=== PATIENT | male | born 1955 | race Two or more races ===

== ENCOUNTER 2017-03-19 20:57 | Inpatient (IN) | payer SELFPAY ==
[~2017-03-19] VITALS: Ht 160 cm; Wt 95.4 kg
[~2017-03-19 20:57] MED LIST: PROAIR HFA8.5 GM INH
[2017-03-19] MEDS ORDERED: NITROGLYCERIN SUBLINGUAL 0.4 MG BOTTLE OF 25. SL ONE (21:07)
[2017-03-19 21:18] LABS: BASO % 1 % (0-3); EOS % 14 % (0-3); LYMPH # 2.3 x10^3/uL (1.0-4.8); LYMPH % 31 % (24-48); MEAN CORPUSCULAR HEMOGLOBIN 33 pg (25-35); MEAN CORPUSCULAR HGB CONC 34 g/dL (31-37); MEAN CORPUSCULAR VOLUME 97 fL (79-100); MONO % 9 % (0-9); NEUT % 46 % (31-73); PLATELET COUNT 232 x10^3/uL (140-400); RED BLOOD COUNT 5.15 x10^6/uL (4.30-5.70); RED CELL DISTRIBUTION WIDTH 13.4 % (11.5-14.5); WHITE BLOOD COUNT 7.5 x10^3/uL (4.0-11.0)
[2017-03-19 21:22] LABS: CALCIUM 8.5 mg/dL (8.5-10.1); CREATININE 0.8 mg/dL (0.7-1.3); GFR 98.3; POTASSIUM 4.3 mmol/L (3.5-5.1)
--- NOTE | 2017-03-19 21:28 | PHYS DOC ---
Past Medical History Past Medical History: Asthma, Hypertension Past Surgical History: No Surgical History Alcohol Use: Heavy Drug Use: None Adult General Chief Complaint Chief Complaint: CHEST PAIN HPI HPI 62-year-old male who has known history of hypertension and COPD. He presents with 2 hours of substernal chest pain that he noted while he was in the shower today. Upon arrival, patient had a O2 saturation of 92% and was placed on supplemental oxygen and given a full 325 mg aspirin as well as 100 g of fentanyl with some improvement of his symptoms. Patient arrives early hypertensive but in no acute distress he currently rates his pain an 8 out of 10 localized to the substernal area of his chest. He does not claim any history of cardiac disease. He denies any nausea or vomiting. Patient does use an inhaler at home for his history of COPD. Review of Systems Review of Systems Constitutional: Denies fever or chills [] Eyes: Denies change in visual acuity, redness, or eye pain [] HENT: Denies nasal congestion or sore throat [] Respiratory: Denies cough or shortness of breath [] Cardiovascular: No additional information not addressed in HPI [] GI: Denies abdominal pain, nausea, vomiting, bloody stools or diarrhea [] : Denies dysuria or hematuria [] Musculoskeletal: Denies back pain or joint pain [] Integument: Denies rash or skin lesions [] Neurologic: Denies headache, focal weakness or sensory changes [] Endocrine: Denies polyuria or polydipsia [] Current Medications Current Medications Current Medications Medications (Trade) Dose Ordered Sig/Sadi Start Time Stop Time Status Last Admin Dose Admin Albuterol/ Ipratropium (Duoneb) 3 ml RTQID 03/20/17 08:00 03/21/17 07:59 Morphine Sulfate 4 mg PRN Q2HR PRN 03/19/17 22:00 03/20/17 21:59 Nitroglycerin (Nitrostat) 0.4 mg STK-MED ONCE 03/19/17 21:07 03/19/17 21:08 DC Ondansetron HCl (Zofran) 4 mg PRN Q8HRS PRN 03/19/17 22:00 03/20/17 21:59 Allergies Allergies Allergies Coded Allergies Type Severity Reaction Last Updated Verified No Known Drug Allergies 10/01/16 No Physical Exam Physical Exam Constitutional: Well developed, well nourished, no acute distress, non-toxic appearance. [] HENT: Normocephalic, atraumatic, bilateral external ears normal, oropharynx moist, no oral exudates, nose normal. [] Eyes: PERRLA, EOMI, conjunctiva normal, no discharge. [] Neck: Normal range of motion, no tenderness, supple, no stridor. [] Cardiovascular:Heart rate regular rhythm, no murmur [] Lungs & Thorax: Bilateral breath sounds clear to auscultation [] Abdomen: Bowel sounds normal, soft, no tenderness, no masses, no pulsatile masses. [] Skin: Warm, dry, no erythema, no rash. [] Back: No tenderness, no CVA tenderness. [] Extremities: No tenderness, no cyanosis, no clubbing, ROM intact, no edema. [] Neurologic: Alert and oriented X 3, normal motor function, normal sensory function, no focal deficits noted. [] Psychologic: Affect normal, judgement normal, mood normal. [] Current Patient Data Vital Signs Vital Signs Date Time Temp Pulse Resp B/P (MAP) Pulse Ox O2 Delivery O2 Flow Rate FiO2 03/19/17 21:48 95 Nasal Cannula 2.0 03/19/17 21:11 98.1 83 20 182/113 (136) 98.1 Lab Values Laboratory Tests Test 03/19/17 21:05 White Blood Count 7.5 x10^3/uL (4.0-11.0) Red Blood Count 5.15 x10^6/uL (4.30-5.70) Hemoglobin 17.0 g/dL (13.0-17.5) Hematocrit 50.0 % (39.0-53.0) Mean Corpuscular Volume 97 fL (79-100) Mean Corpuscular Hemoglobin 33 pg (25-35) Mean Corpuscular Hemoglobin Concent 34 g/dL (31-37) Red Cell Distribution Width 13.4 % (11.5-14.5) Platelet Count 232 x10^3/uL (140-400) Neutrophils (%) (Auto) 46 % (31-73) Lymphocytes (%) (Auto) 31 % (24-48) Monocytes (%) (Auto) 9 % (0-9) Eosinophils (%) (Auto) 14 % (0-3) H Basophils (%) (Auto) 1 % (0-3) Neutrophils # (Auto) 3.4 x10^3uL (1.8-7.7) Lymphocytes # (Auto) 2.3 x10^3/uL (1.0-4.8) Monocytes # (Auto) 0.7 x10^3/uL (0.0-1.1) Eosinophils # (Auto) 1.0 x10^3/uL (0.0-0.7) H Basophils # (Auto) 0.0 x10^3/uL (0.0-0.2) Sodium Level 140 mmol/L (136-145) Potassium Level 4.3 mmol/L (3.5-5.1) Chloride Level 105 mmol/L (98-107) Carbon Dioxide Level 24 mmol/L (21-32) Anion Gap 11 (6-14) Blood Urea Nitrogen 14 mg/dL (8-26) Creatinine 0.8 mg/dL (0.7-1.3) Estimated GFR (Cockcroft-Gault) 98.3 Glucose Level 147 mg/dL (70-99) H Calcium Level 8.5 mg/dL (8.5-10.1) Troponin I Quantitative < 0.017 ng/mL (0.000-0.055) Laboratory Tests 03/19/17 21:05 Laboratory Tests 03/19/17 21:05 EKG EKG EKG as interpreted by me shows sinus rhythm with a rate of 85 bpm. There is a leftward axis. There is no acute injury pattern. Intervals are normal. Radiology/Procedures Radiology/Procedures Portable one view of the chest as interpreted by me shows no acute cardiopulmonary process. Course & Med Decision Making Course & Med Decision Making Pertinent Labs and Imaging studies reviewed. (See chart for details) This 62-year-old male with substernal chest pain will be admitted to the hospital for further evaluation treatment. A sublingual nitroglycerin be given for his blood pressure as well as chest pain. Troponin will be ordered. Chest x- ray pending at this time. A breathing treatment will be ordered as well. Upon my reassessment after sublingual nitroglycerin, the patient feels significantly improved with near resolution of his chest pain. Serial troponins have been ordered. I will discuss the case with the hospitalist, Dr. Quispe, and will place a cardiology consult as well. His EKG, chest x-ray, cardiac enzymes and the rest of his laboratory workup has been unremarkable. His blood pressure has improved significantly with sublingual nitroglycerin only. Dragon Disclaimer Dragon Disclaimer This electronic medical record was generated, in whole or in part, using a voice recognition dictation system. Departure Departure Impression: Primary Impression: Chest pain Additional Impression: COPD exacerbation Disposition: ADMITTED INPATIENT Admitting Physician: Chen Quispe Condition: STABLE Referrals: NO PCP (PCP) Problem Qualifiers JAYLON CRUZ DO March 19, 2017 21:28
[2017-03-19] MEDS ORDERED: IPRATRPIUM/ALBUTEROL 0.5/2.5MG 3 ML NEBU. NEB ONE (21:30)
[2017-03-19] MEDS ORDERED: ONDANSETRON PF 4 MG/2 ML VIAL. IV PRN (22:00)
[2017-03-19] MEDS ORDERED: MORPHINE SULFATE 4 MG/ML DISP.SYRIN. IV PRN (22:00)
[2017-03-19 23:48] VITALS: BP 155/97
[2017-03-20] VITALS (14 sets, daily range): BP systolic 119–176; BP diastolic 75–107
[2017-03-20] MEDS ORDERED: NITROGLYCERIN SUBLINGUAL 0.4 MG BOTTLE OF 25. SL PRN (00:30)
--- NOTE | 2017-03-20 03:20 | ACF ---
Admit Criteria Forms Admit Criteria Forms Admit Criteria Forms CARDIOLOGY GRG Clinical Indications for Admission to Inpatient Care ( Place 'X' for any and all applicable criteria): Hospital admission is needed for appropriate care of the patient because of ANY ONE of the following (1): [ ] I. Hemodynamic instability as indicated by ALL of the following (1)(2)(3) (4)(5) [ ]a) Vital signs or other findings not as expected for chronic patient condition or baseline [ ]b) Instability indicated by ANY ONE of the following: [ ]i) Hypotension [ ]ii) Symptomatic Tachycardia unresponsive to treatment ( e.g., analgesia, fluids, sedation as indicated) [ ]iii) Inadequate perfusion indicated by ANY ONE of the following: [ ] 1) Lactic acidosis (> 2 mmol/L) [ ] 2) New abnormal capillary refill (> 3 seconds) [ ] 3) Reduced urine output [ ] 4) New altered mental status [ ]iv) Orthostatic vital sign changes unresponsive to treatment (e.g., fluids) [ ]v) IV inotropic or vasopressor medication required to maintain adequate blood pressure or perfusion [ ] II. Severe heart failure as indicated by ANY ONE of the following(17)(18) [ ]a) Respiratory distress [ ]b) Hypotension [ ]c) Anasarca (refractory to outpatient therapy) [ ]d) Cardiac arrhythmias of immediate concern [ ]e) Myocardial ischemia [ ] III. Cardiac arrhythmias or findings of immediate concern indicated by ANY ONE of the following (19)(20): [ ] a) Heart rhythms that are inherently dangerous or unstable indicated by ANY ONE of the following (21)(22)(23): [ ] i) Resuscitated ventricular fibrillation or cardiac arrest [ ] ii) Ventricular escape rhythm [ ] iii) Sustained ventricular tachycardia (30 seconds or more of ventricular rhythm at greater than 100 beats per minute) [ ] iv) Nonsustained ventricular tachycardia and ANY ONE of the following: [ ] 1) Suspected cardiac ischemia as cause or consequence of ventricular tachycardia [ ] 2) In setting of acute myocarditis [ ] b) Unstable cardiac conduction defects indicated by ANY ONE of the following(23)(24)(25) [ ] i) Type II second-degree atrioventricular block [ ]ii) Third-degree atrioventricular block [ ]iii) New-onset left bundle branch block with suspected myocardial ischemia [ ]c) Any heart rhythm and ANY ONE of the following (21)(22)(26)(27) (28) [ ] i) Continuous long-term ECG monitoring needed (e.g., initiation of drug requiring monitoring for more than 24 hours) [ ] ii) Patient has automatic implanted cardioverter defibrillator that is repeatedly firing, malfunctioning, or in need of immediate adjustment of settings beyond the scope of ambulatory or observation care [ ]d) Heart rhythms of concern due to ANY ONE of the following: [ ] i) Hypotension [ ] ii) Respiratory distress [ ] iii) Association with other significant symptoms (e.g., bradycardia with syncope or ongoing dizziness, supraventricular tachycardia with chest pain (14)(15)(17) [ ] IV. Monitoring for cardiac contusion beyond the scope of observation care needed [A](30)(31)(32) [ ] V. Surgical or device complication (e.g., valve replacement complication , pacemaker dysfunction) (35)(41)(44)(45)(46) [ ] . Inpatient palliative care needed. [B](49) Also use Inpatient Palliative Care Criteria [ ] VII. Nonbacterial thrombotic (marantic) endocarditis (36)(43)(47)(48) [X] VIII. Cardiology condition, symptom, or finding for which emergency and observation care has failed or are not considered appropriate. [ ] IX. Acute valvular disease requiring inpatient as indicated by ANY ONE of the following (41) [ ]a) Acute valvular regurgitation (42) [ ]b) Noninfectious valvulitis (43) [ ]c) Obstructive valve thrombosis [ ]d) Paravalvular leak [ ]e) Other significant valvular disorder remaining after emergency or observation level of care (as appropriate) [ ]X. Pericardial disease requiring inpatient treatment as indicated by ANY ONE of the following (33)(34)(35)(36)(37) [ ]a) Suspected tamponade (38)(39)(40) [ ]b) Hemopericardium [ ]c) Other significant pericardial disorder remaining after emergency or observation level of care (as appropriate) [ ] XI. Cardiac ischemia beyond scope of emergency and observation care. [ ] XII. Hypertension requiring inpatient treatment as indicated by ANY ONE of the following (6)(7)(8) [ ]a) SBP greater than 220 mm Hg or DBP greater than 120 mmHg despite treatment [ ]b) SBP greater than 140 mm Hg or DBP greater than 100 mm Hg with evidence of acute end organ damage as indicated by ANY ONE of the following [ ] i) Encephalopathy [ ] ii) Acute renal failure as indicated by new onset of ANY ONE of the following (9)(10)(11)(12)(13) [ ]1) 3-fold rise in serum creatinine from baseline [ ]2) Serum creatinine greater than 4 mg/dL ( 354 micromoles/L) with acute rise greater than 0.5 mg/dL (44.2 micromoles/L) [ ]3) Reduction of more than 75% in estimated glomerular filtration rate from baseline [ ]4) Estimated glomerular filtration rate less than 35 mL/min/1.73m2 (0.59 mL/sec/1.73m2) in child up to 18 years of age [ ]5) Cessation of urine output indicated by ALL of the following [ ]A. Adequate volume status [ ]B. Inadequate urine output as indicated by ANY ONE of the following [ ]a. Urine output less than 0.3 mL/kg/hr for 24 hours [ ]b. Anuria (urine output less than 0.1 mL/kg/hr) for 12 hours [ ] iii) Aortic dissection [ ] iv) Myocardial Ischemia [ ] v) Left ventricular heart failure [ ]vi) Retinal Hemorrhage [ ]vii) Other significant finding [ ]c) Hypertension in child requiring inpatient treatment as indicated by ALL of the following(14)(15)(16) [ ] i) Outpatient treatment not effective, not available, or not appropriate [ ]ii) SBP or DBP greater than 95th percentile for age [ ]iii) Evidence of acute end organ damage as indicated by ANY ONE of the following [ ]1) Altered mental status [ ]2) Acute renal failure as indicated by new onset of ANY ONE of the following(9)(10)(11)(12)(13) [ ]A. 3-fold rise in serum creatinine from baseline [ ]B. Serum creatinine greater than 4 mg/dL (354 micromoles/L) with acute rise greater than 0.5 mg/dL (44.2 micromoles/L) [ ]C. Reduction of more than 75% in estimated glomerular filtration rate from baseline [ ]D. Estimated glomerular filtration rate less than 35 mL/min/1.73m2 (0.59 mL/sec/1.73m2) in child up to 18 years of age [ ]E. Cessation of urine output indicated by ALL of the following [ ]a. Adequate volume status [ ]b. Inadequate urine output as indicated by ANY ONE of the following [ ]i) Urine output less than 0.3 mL/kg/hr for 24 hours [ ]ii) Anuria ( urine output less than 0.1 mL/kg/hr) for 12 hours [ ]3) Severe headache [ ]4) Visual disturbance [ ]5) Retinal hemorrhage [ ]6) Other significant finding [ ]XIII. Complications of transplanted heart indicated by ANY ONE of the following(61): [ ]a) Acute graft rejection requiring inpatient management (eg, intravenous immunosuppression)(62)(63) [ ]b) Acute graft heart failure indicated by ANY ONE of the following(64): [ ]i) Hemodynamic instability [ ]ii) Cardiac arrhythmias of immediate concern [ ]iii) Pulmonary edema that is very severe (eg, mechanical ventilation needed, imminent or likely, need for 100% oxygen to keep oxygen saturation above 90%) [ ]iv) Pulmonary edema that is persistent as indicated by ALL of the following: [ ]1) New need for oxygen therapy to keep oxygen saturation above 90% (or increased FiO2 need from baseline) [ ]2) Has not improved sufficiently with emergency department or observation care IV diuretics or other heart failure treatments[E] [ ]v) Altered mental status that is severe or persistent [ ]vi) Increased creatinine (new on laboratory test) with reduction of more than 50% in estimated glomerular filtration rate from baseline [ ]vii) Progressively (ongoing) rising creatinine (known from past laboratory test) with reduction of more than 25% in estimated glomerular filtration rate from baseline [ ]viii) Acute renal failure [ ]ix) Acute peripheral ischemia (eg, examination shows pulseless, cool, mottled, or cyanotic extremity) [ ]x) Pulmonary artery catheter monitoring needed [ ]xi) Other sign or symptom of heart failure requiring inpatient treatment (ie, too severe or not responsive to outpatient and observation care treatment) [ ]c) Infection requiring inpatient management (eg, Hemodynamic instability, need for intravenous antimicrobial treatment)(66)(67)(68)(69)(70) [ ]d) Cardiac allograft vasculopathy requiring inpatient management ( eg evidence of cardiac ischemia)(71) [ ]e) Other complication of transplanted heart (eg, stroke, severe pulmonary hypertension, severe valvular dysfunction) requiring inpatient management(72) The original [employer] content created by [facility] [employer] has been revised. The portions of the content which have been revised are identified through the use of italic text or in bold, and [facility] has neither reviewed nor approved the modified material. All other unmodified content is copyright [employer] [facility]. Please see references footnoted in the original [facility] edition 2016 PATRICIO KELLER March 20, 2017 03:20
[2017-03-20 05:45] LABS: BASO % 1 % (0-3); EOS % 16 % (0-3); HEMATOCRIT 48.2 % (39.0-53.0); LYMPH # 2.1 x10^3/uL (1.0-4.8); LYMPH % 29 % (24-48); MEAN CORPUSCULAR HEMOGLOBIN 33 pg (25-35); MEAN CORPUSCULAR HGB CONC 33 g/dL (31-37); MEAN CORPUSCULAR VOLUME 98 fL (79-100); MONO % 10 % (0-9); NEUT % 45 % (31-73); PLATELET COUNT 239 x10^3/uL (140-400); RED CELL DISTRIBUTION WIDTH 13.6 % (11.5-14.5); WHITE BLOOD COUNT 7.2 x10^3/uL (4.0-11.0)
[2017-03-20 06:13] LABS: CALCIUM 8.5 mg/dL (8.5-10.1); CREATININE 0.8 mg/dL (0.7-1.3); GFR 98.3; POTASSIUM 4.2 mmol/L (3.5-5.1)
[2017-03-20 06:32] LABS: CHOLESTEROL/HDL RATIO 6.2
[2017-03-20] MEDS ORDERED: HEPARIN 25,000UTS/500ML PREMIX 500 ML IV PRN (07:15)
[2017-03-20] MEDS ORDERED: HEPARIN for IV BOLUS 10,000 UNIT/10 ML VIAL. IV ONE ×2 (07:15→15:00)
[2017-03-20] MEDS ORDERED: HEPARIN for IV BOLUS 10,000 UNIT/10 ML VIAL. IV PRN (07:15)
--- NOTE | 2017-03-20 07:45 | RAD ---
Portable chest, 03/19/2017: History: Chest pain, cough Comparison is made to a study from 10/01/2016. The heart size and pulmonary vascularity are normal. There is mild tortuosity of the thoracic aorta. No acute infiltrate is seen. There is no evidence of pleural fluid. Moderate spurring is present in the spine. IMPRESSION: No acute cardiopulmonary abnormality is detected.
--- NOTE | 2017-03-20 08:47 | EKG ---
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
--- NOTE | 2017-03-20 09:10 | PDOC2 ---
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 Reports of left chest pressure overnight lasting about 3 hours that was associated with SOA, nausea and diaphoresis. His discomfort did not get better till he got in the hospital and received medications. He does have HTN and his BP was labile coming in. He has stopped taking his BP meds about 2 months ago. He does not have any hx of CAD, VTE, and no recent fals or injury. Denies any frequent heartburn. In addition to his symptoms lately he has been a little more SOA with exertion His mainly sedentary and no forms of routine exercise. He also adds that at times he does when he sleeps he wakes at night gasping for air but better after he takes his inhalers. He does have COPD and still has albuterol inhaler for it. Denies any routine NSAID use. The staff tried to call [facility] [place] to confirm his past medications but apparently he was not noted to be in the system. He currently lives with his daughter in [facility]. PAST MEDICAL HISTORY Cardiovascular: HTN Pulmonary: COPD CENTRAL NERVOUS SYSTEM: Other (No pertinent history) GI: No pertinent hx Heme/Onc: No pertinent hx Hepatobiliary: No pertinent hx Psych: No pertinent hx Musculoskeletal: low back pain, Osteoarthritis Rheumatologic: No pertinent hx Infectious disease: No pertinent hx ENT: No pertinent hx Renal/: No pertinent hx Endocrine: No pertinent hx Dermatology: No pertinent hx PAST SURGICAL HISTORY Past Surgical History: Other (right hand repair) FAMILY HISTORY Family History noncontributory to CV SOCIAL HISTORY Smoke: No (quit 2 yrs ago. >30 pk yr) ALCOHOL: none Drugs: None Lives: with Family CURRENT MEDICATIONS CURRENT MEDICATIONS Current Medications Medications (Trade) Dose Ordered Sig/Sadi Route PRN Reason Start Time Stop Time Status Last Admin Dose Admin Albuterol/ Ipratropium (Duoneb) 3 ml 1X ONCE NEB 03/19/17 21:30 03/19/17 21:31 DC 03/19/17 21:47 Nitroglycerin (Nitrostat) 0.4 mg PRN Q5MIN PRN SL CHEST PAIN 03/20/17 00:30 03/19/17 21:08 Heparin Sodium (Porcine) (Heparin Sodium) 4,000 unit 1X ONCE IV 03/20/17 07:15 03/20/17 07:16 DC 03/20/17 07:29 Heparin Sodium/ Dextrose 500 ml @ 0 mls/hr CONT PRN IV SEE I/O RECORD 03/20/17 07:15 03/20/17 07:29 ALLERGIES ALLERGIES: Coded Allergies: No Known Drug Allergies (Unverified , 10/01/16) ROS Review of System 14 point ROS evaluated with pertinent positives noted per HPI PHYSICAL EXAM General: Alert, Oriented X3, Cooperative, No acute distress HEENT: Atraumatic, Mucous membr. moist/pink Lungs: Normal air movement, Other (upper wheeze) Heart: Regular rate (SR), Normal S1, Normal S2, Other (distant heart sounds) Abdomen: Soft, No tenderness Extremities: Other (obese) Skin: No breakdown, No significant lesion Neuro: Normal speech, Sensation intact Psych/Mental Status: Mental status NL, Mood NL MUSCULOSKELETAL: Osteoarthritic changes both hands VITALS VITALS Vital Signs Date Time Temp Pulse Resp B/P (MAP) Pulse Ox O2 Delivery O2 Flow Rate FiO2 03/20/17 07:00 97.4 77 20 170/107 (128) 93 Nasal Cannula 2.0 97.4 LABS Lab: Laboratory Tests Test 03/19/17 21:05 03/20/17 05:25 White Blood Count 7.5 x10^3/uL (4.0-11.0) 7.2 x10^3/uL (4.0-11.0) Red Blood Count 5.15 x10^6/uL (4.30-5.70) 4.90 x10^6/uL (4.30-5.70) Hemoglobin 17.0 g/dL (13.0-17.5) 16.0 g/dL (13.0-17.5) Hematocrit 50.0 % (39.0-53.0) 48.2 % (39.0-53.0) Mean Corpuscular Volume 97 fL (79-100) 98 fL (79-100) Mean Corpuscular Hemoglobin 33 pg (25-35) 33 pg (25-35) Mean Corpuscular Hemoglobin Concent 34 g/dL (31-37) 33 g/dL (31-37) Red Cell Distribution Width 13.4 % (11.5-14.5) 13.6 % (11.5-14.5) Platelet Count 232 x10^3/uL (140-400) 239 x10^3/uL (140-400) Neutrophils (%) (Auto) 46 % (31-73) 45 % (31-73) Lymphocytes (%) (Auto) 31 % (24-48) 29 % (24-48) Monocytes (%) (Auto) 9 % (0-9) 10 % (0-9) Eosinophils (%) (Auto) 14 % (0-3) 16 % (0-3) Basophils (%) (Auto) 1 % (0-3) 1 % (0-3) Neutrophils # (Auto) 3.4 x10^3uL (1.8-7.7) 3.2 x10^3uL (1.8-7.7) Lymphocytes # (Auto) 2.3 x10^3/uL (1.0-4.8) 2.1 x10^3/uL (1.0-4.8) Monocytes # (Auto) 0.7 x10^3/uL (0.0-1.1) 0.7 x10^3/uL (0.0-1.1) Eosinophils # (Auto) 1.0 x10^3/uL (0.0-0.7) 1.1 x10^3/uL (0.0-0.7) Basophils # (Auto) 0.0 x10^3/uL (0.0-0.2) 0.0 x10^3/uL (0.0-0.2) Sodium Level 140 mmol/L (136-145) 142 mmol/L (136-145) Potassium Level 4.3 mmol/L (3.5-5.1) 4.2 mmol/L (3.5-5.1) Chloride Level 105 mmol/L (98-107) 106 mmol/L (98-107) Carbon Dioxide Level 24 mmol/L (21-32) 27 mmol/L (21-32) Anion Gap 11 (6-14) 9 (6-14) Blood Urea Nitrogen 14 mg/dL (8-26) 13 mg/dL (8-26) Creatinine 0.8 mg/dL (0.7-1.3) 0.8 mg/dL (0.7-1.3) Estimated GFR (Cockcroft-Gault) 98.3 98.3 Glucose Level 147 mg/dL (70-99) 117 mg/dL (70-99) Calcium Level 8.5 mg/dL (8.5-10.1) 8.5 mg/dL (8.5-10.1) Troponin I Quantitative < 0.017 ng/mL (0.000-0.055) 0.967 ng/mL (0.000-0.055) Triglycerides Level 193 mg/dL (0-150) Cholesterol Level 173 mg/dL (0-200) LDL Cholesterol, Calculated 106 mg/dL (0-100) VLDL Cholesterol, Calculated 39 mg/dL (0-40) Non-HDL Cholesterol Calculated 145 mg/dL (0-129) HDL Cholesterol 28 mg/dL (40-60) Cholesterol/HDL Ratio 6.2 ASSESSMENT/PLAN ASSESSMENT/PLAN 1. NSTEMI: 0.967 on 2nd trop, EKG SR with possible anterolateral changes with now poor R wave progression on repeat EKG. Notable for typical features. 2. HTN: labile. Stopped taking meds about 2 months ago 3. HLP: new 4. COPD: per PCP. >30 pk yr quit 2 yrs ago 5. Obesity: BMI 37 6. Likely BHARTI: physical features with verbalized PND will need outpt workup. Recommendations 1. Heparin drip, ASA 2. TTE, CMP, Mg, TSH 3. [facility] today, risks and benefits explained and agreeable. 4. Will start on lisinopril, will incorporate HCTZ post [facility]. Hydralazine IV PRN Problems: PHYLLIS CH MD 03/21/17 2154: CARDIAC CONSULT ALLERGIES ALLERGIES: Coded Allergies: No Known Drug Allergies (Unverified , 10/01/16) ASSESSMENT/PLAN ASSESSMENT/PLAN Late entry for 03/20/2017 62 y.o male with nstemi, plan for [facility] Normal cardiac exam. Labs/meds reviewed. Problems: SARIAH DESAI TRUCK CLEANER March 20, 2017 09:10 PHYLLIS CH MD March 21, 2017 21:54
[2017-03-20] MEDS ORDERED: hydrALAZINE 20 MG/ML VIAL. IVP ONE (09:15)
[2017-03-20] MEDS ORDERED: hydrALAZINE 20 MG/ML VIAL. IVP PRN (09:15)
[2017-03-20] MEDS ORDERED: IV 1/2 NORMAL SALINE 1,000 ML IV ONE (09:15)
--- NOTE | 2017-03-20 09:17 | EKG ---
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
[2017-03-20 09:42] LABS: ALBUMIN 3.3 g/dL (3.4-5.0); DIRECT BILIRUBIN 0.2 mg/dL (0.0-0.2); MAGNESIUM 1.9 mg/dL (1.8-2.4); TOTAL BILIRUBIN 0.6 mg/dL (0.2-1.0); TOTAL PROTEIN 7.6 g/dL (6.4-8.2)
[2017-03-20] MEDS: IPRATRPIUM/ALBUTEROL 0.5/2.5MG 3 ML NEBU. NEB SCH ×4 (09:43→19:59)
--- NOTE | 2017-03-20 09:57 | PDOC1 ---
History and Physical Current Problem List Problem List Problems Medical Problems: (1) Chest pain Status: Acute (2) COPD exacerbation Status: Acute Current Medications Current Medications Current Medications Medications (Trade) Dose Ordered Sig/Sadi Start Time Stop Time Status Last Admin Dose Admin Albuterol/ Ipratropium (Duoneb) 3 ml RTQID 03/20/17 08:00 03/21/17 07:59 03/20/17 09:43 3 ML Atorvastatin Calcium (Lipitor) 40 mg QHS 03/20/17 21:00 Heparin Sodium (Porcine) (Heparin Sodium) 2,400 unit PRN Q6HRS PRN 03/20/17 07:15 Heparin Sodium/ Dextrose 500 ml @ 0 mls/hr CONT PRN 03/20/17 07:15 03/20/17 07:29 0 MLS/HR Hydralazine HCl (Apresoline) 10 mg 1X ONCE 03/20/17 09:15 03/20/17 09:16 DC 03/20/17 09:20 10 MG Morphine Sulfate 4 mg PRN Q2HR PRN 03/19/17 22:00 03/20/17 21:59 Nitroglycerin (Nitrostat) 0.4 mg PRN Q5MIN PRN 03/20/17 00:30 03/19/17 21:08 0.4 MG Ondansetron HCl (Zofran) 4 mg PRN Q8HRS PRN 03/19/17 22:00 03/20/17 21:59 Sodium Chloride 1,000 ml @ 75 mls/hr 1X ONCE 03/20/17 09:15 03/20/17 22:34 03/20/17 09:47 75 MLS/HR Allergies Allergies Allergies Coded Allergies Type Severity Reaction Last Updated Verified No Known Drug Allergies 10/01/16 No ROS Review of System CONSTITUTIONAL: No fever or chills EYES: No recent changes SKIN: No rash or itching CARDIOVASCULAR: chest pain, no syncope, palpitations, or edema RESPIRATORY: No SOB or cough GASTROINTESTINAL: No nausea, vomiting or abdominal pain NEUROLOGICAL: No headaches or weakness ENDOCRINE: No cold or heat intolerance GENITOURINARY: No urgency or frequency of urination MUSCULOSKELETAL: No back pain or joint pain LYMPHATICS: No enlarged lymph nodes PSYCHIATRIC: No anxiety or depression Physical Exam Physical Exam GEN.: No apparent distress. Alert and oriented. HEENT: Head is normocephalic, atraumatic NECK: Supple. no JVD LUNGS: Clear to auscultation. Normal airflow HEART: RRR, S1, S2 present. Peripheral pulses intact ABDOMEN: Soft, nontender. Positive bowel sounds. EXTREMITIES: Without any cyanosis. NEUROLOGIC: Normal speech, normal tone PSYCHIATRIC: Normal affect, normal mood. SKIN: No ulcerations Vitals Vitals Vital Signs Date Time Temp Pulse Resp B/P (MAP) Pulse Ox O2 Delivery O2 Flow Rate FiO2 03/20/17 09:20 77 170/107 03/20/17 07:50 Nasal Cannula 2.0 03/20/17 07:00 97.4 20 93 97.4 Labs Labs Laboratory Tests Test 03/19/17 21:05 03/20/17 05:25 White Blood Count 7.5 x10^3/uL (4.0-11.0) 7.2 x10^3/uL (4.0-11.0) Red Blood Count 5.15 x10^6/uL (4.30-5.70) 4.90 x10^6/uL (4.30-5.70) Hemoglobin 17.0 g/dL (13.0-17.5) 16.0 g/dL (13.0-17.5) Hematocrit 50.0 % (39.0-53.0) 48.2 % (39.0-53.0) Mean Corpuscular Volume 97 fL (79-100) 98 fL (79-100) Mean Corpuscular Hemoglobin 33 pg (25-35) 33 pg (25-35) Mean Corpuscular Hemoglobin Concent 34 g/dL (31-37) 33 g/dL (31-37) Red Cell Distribution Width 13.4 % (11.5-14.5) 13.6 % (11.5-14.5) Platelet Count 232 x10^3/uL (140-400) 239 x10^3/uL (140-400) Neutrophils (%) (Auto) 46 % (31-73) 45 % (31-73) Lymphocytes (%) (Auto) 31 % (24-48) 29 % (24-48) Monocytes (%) (Auto) 9 % (0-9) 10 % (0-9) Eosinophils (%) (Auto) 14 % (0-3) 16 % (0-3) Basophils (%) (Auto) 1 % (0-3) 1 % (0-3) Neutrophils # (Auto) 3.4 x10^3uL (1.8-7.7) 3.2 x10^3uL (1.8-7.7) Lymphocytes # (Auto) 2.3 x10^3/uL (1.0-4.8) 2.1 x10^3/uL (1.0-4.8) Monocytes # (Auto) 0.7 x10^3/uL (0.0-1.1) 0.7 x10^3/uL (0.0-1.1) Eosinophils # (Auto) 1.0 x10^3/uL (0.0-0.7) 1.1 x10^3/uL (0.0-0.7) Basophils # (Auto) 0.0 x10^3/uL (0.0-0.2) 0.0 x10^3/uL (0.0-0.2) Sodium Level 140 mmol/L (136-145) 142 mmol/L (136-145) Potassium Level 4.3 mmol/L (3.5-5.1) 4.2 mmol/L (3.5-5.1) Chloride Level 105 mmol/L (98-107) 106 mmol/L (98-107) Carbon Dioxide Level 24 mmol/L (21-32) 27 mmol/L (21-32) Anion Gap 11 (6-14) 9 (6-14) Blood Urea Nitrogen 14 mg/dL (8-26) 13 mg/dL (8-26) Creatinine 0.8 mg/dL (0.7-1.3) 0.8 mg/dL (0.7-1.3) Estimated GFR (Cockcroft-Gault) 98.3 98.3 Glucose Level 147 mg/dL (70-99) 117 mg/dL (70-99) Calcium Level 8.5 mg/dL (8.5-10.1) 8.5 mg/dL (8.5-10.1) Troponin I Quantitative < 0.017 ng/mL (0.000-0.055) 0.967 ng/mL (0.000-0.055) Magnesium Level 1.9 mg/dL (1.8-2.4) Total Bilirubin 0.6 mg/dL (0.2-1.0) Direct Bilirubin 0.2 mg/dL (0.0-0.2) Aspartate Amino Transf (AST/SGOT) 32 U/L (15-37) Alanine Aminotransferase (ALT/SGPT) 43 U/L (16-63) Alkaline Phosphatase 57 U/L (46-116) Total Protein 7.6 g/dL (6.4-8.2) Albumin 3.3 g/dL (3.4-5.0) Triglycerides Level 193 mg/dL (0-150) Cholesterol Level 173 mg/dL (0-200) LDL Cholesterol, Calculated 106 mg/dL (0-100) VLDL Cholesterol, Calculated 39 mg/dL (0-40) Non-HDL Cholesterol Calculated 145 mg/dL (0-129) HDL Cholesterol 28 mg/dL (40-60) Cholesterol/HDL Ratio 6.2 Thyroid Stimulating Hormone (TSH) 1.942 uIU/mL (0.358-3.74) Laboratory Tests Test 03/19/17 21:05 03/20/17 05:25 White Blood Count 7.5 x10^3/uL (4.0-11.0) 7.2 x10^3/uL (4.0-11.0) Red Blood Count 5.15 x10^6/uL (4.30-5.70) 4.90 x10^6/uL (4.30-5.70) Hemoglobin 17.0 g/dL (13.0-17.5) 16.0 g/dL (13.0-17.5) Hematocrit 50.0 % (39.0-53.0) 48.2 % (39.0-53.0) Mean Corpuscular Volume 97 fL (79-100) 98 fL (79-100) Mean Corpuscular Hemoglobin 33 pg (25-35) 33 pg (25-35) Mean Corpuscular Hemoglobin Concent 34 g/dL (31-37) 33 g/dL (31-37) Red Cell Distribution Width 13.4 % (11.5-14.5) 13.6 % (11.5-14.5) Platelet Count 232 x10^3/uL (140-400) 239 x10^3/uL (140-400) Neutrophils (%) (Auto) 46 % (31-73) 45 % (31-73) Lymphocytes (%) (Auto) 31 % (24-48) 29 % (24-48) Monocytes (%) (Auto) 9 % (0-9) 10 % (0-9) Eosinophils (%) (Auto) 14 % (0-3) 16 % (0-3) Basophils (%) (Auto) 1 % (0-3) 1 % (0-3) Neutrophils # (Auto) 3.4 x10^3uL (1.8-7.7) 3.2 x10^3uL (1.8-7.7) Lymphocytes # (Auto) 2.3 x10^3/uL (1.0-4.8) 2.1 x10^3/uL (1.0-4.8) Monocytes # (Auto) 0.7 x10^3/uL (0.0-1.1) 0.7 x10^3/uL (0.0-1.1) Eosinophils # (Auto) 1.0 x10^3/uL (0.0-0.7) 1.1 x10^3/uL (0.0-0.7) Basophils # (Auto) 0.0 x10^3/uL (0.0-0.2) 0.0 x10^3/uL (0.0-0.2) Sodium Level 140 mmol/L (136-145) 142 mmol/L (136-145) Potassium Level 4.3 mmol/L (3.5-5.1) 4.2 mmol/L (3.5-5.1) Chloride Level 105 mmol/L (98-107) 106 mmol/L (98-107) Carbon Dioxide Level 24 mmol/L (21-32) 27 mmol/L (21-32) Anion Gap 11 (6-14) 9 (6-14) Blood Urea Nitrogen 14 mg/dL (8-26) 13 mg/dL (8-26) Creatinine 0.8 mg/dL (0.7-1.3) 0.8 mg/dL (0.7-1.3) Estimated GFR (Cockcroft-Gault) 98.3 98.3 Glucose Level 147 mg/dL (70-99) 117 mg/dL (70-99) Calcium Level 8.5 mg/dL (8.5-10.1) 8.5 mg/dL (8.5-10.1) Troponin I Quantitative < 0.017 ng/mL (0.000-0.055) 0.967 ng/mL (0.000-0.055) Magnesium Level 1.9 mg/dL (1.8-2.4) Total Bilirubin 0.6 mg/dL (0.2-1.0) Direct Bilirubin 0.2 mg/dL (0.0-0.2) Aspartate Amino Transf (AST/SGOT) 32 U/L (15-37) Alanine Aminotransferase (ALT/SGPT) 43 U/L (16-63) Alkaline Phosphatase 57 U/L (46-116) Total Protein 7.6 g/dL (6.4-8.2) Albumin 3.3 g/dL (3.4-5.0) Triglycerides Level 193 mg/dL (0-150) Cholesterol Level 173 mg/dL (0-200) LDL Cholesterol, Calculated 106 mg/dL (0-100) VLDL Cholesterol, Calculated 39 mg/dL (0-40) Non-HDL Cholesterol Calculated 145 mg/dL (0-129) HDL Cholesterol 28 mg/dL (40-60) Cholesterol/HDL Ratio 6.2 Thyroid Stimulating Hormone (TSH) 1.942 uIU/mL (0.358-3.74) VTE Prophylaxis Ordered VTE Prophylaxis Devices: No VTE Pharmacological Prophylaxi: No KASEY RENAE MD March 20, 2017 09:57
[2017-03-20] MEDS ORDERED: LISINOPRIL 10 MG TABLET PO ONE (11:15)
[2017-03-20 11:22] LABS: % BASOS 1 % (0-3); % EOS 13 % (0-5); PLT ESTIMATE ADEQUATE (ADEQUATE)
[2017-03-20] MEDS: ASPIRIN ENTERIC COATED 81 MG TABLET.DR. PO SCH (12:20)
--- NOTE | 2017-03-20 12:54 | CARD ---
APPROVED REPORT EXAM: Two-dimensional and M-mode echocardiogram with Doppler and color Doppler. Other Information Quality : Average Rhythm : NSR INDICATION Non STEMI 2D DIMENSIONS RVDd3.0 (2.9-3.5cm)Left Atrium(2D)3.0 (1.6-4.0cm) IVSd1.3 (0.7-1.1cm)Aortic Root(2D)2.8 (2.0-3.7cm) LVDd4.4 (3.9-5.9cm)LVOT Diameter2.0 (1.8-2.4cm) PWd1.3 (0.7-1.1cm)LVDs2.8 (2.5-4.0cm) SV56.9 mlLVEF(%)54.1 (>50%) Aortic Valve AoV Peak Yusuf.144.2cm/sAoV VTI25.3cm AO Peak GR.8.3mmHgLVOT Peak Yusuf.113.4cm/s LVOT VTI 24.49cmAO Mean GR.5mmHg PIA (VMAX)2.95cd7RQU (VTI)2.98cm2 Mitral Valve MV E Opgtjxaa63.9cm/sMV DECEL [id number] MV A Rtepnsub38.4cm/sMV MQX83rs E/A Ratio0.8MV A Oormvsds343sj MVA (PHT)3.66cm2 TDI E/Lateral E'12.4E/Medial E'10.5 Pulmonary Valve PV Peak Ttpqsliv29.1cm/sPV Peak Grad.3mmHg RVOT VTI10.3cm Tricuspid Valve TR P. Yonppfqw482bm/sRAP VDMJKKGA9rzKh TR Peak Gr.23ycBzJIEH88kjNc Pulmonary Vein S1 Uqehjmhz28.9cm/sD2 Jlcyzziz70.9cm/s LEFT VENTRICLE The left ventricle is normal size. There is borderline concentric left ventricular hypertrophy. Left ventricle systolic function is normal. The Ejection Fraction is 50-55%. There is normal LV segmental wall motion. Tissue Doppler imaging reveals mild left ventricular diastolic dysfunction. There is no ventricular septal defect visualized. RIGHT VENTRICLE The right ventricle is normal size. The right ventricular systolic function is normal. ATRIA The left atrium size is normal. The right atrium size is normal. The interatrial septum is intact wit h no evidence for an atrial septal defect or patent foramen ovale as noted on 2-D or Doppler imaging. AORTIC VALVE Not well visualized. Grossly appears to be calcified and trileaflet. Doppler and Color Flow revealed no significant aortic regurgitation. There is no significant aortic valvular stenosis. MITRAL VALVE Mitral annular calcification is mild. The mitral valve leaflets are thickened. There is no mitral tawnya ve stenosis. Doppler and Color Flow revealed no mitral valve regurgitation noted. TRICUSPID VALVE The tricuspid valve is normal in structure and function. Doppler and Color Flow revealed trace tricus pid regurgitation. The PA pressure was estimated at 21 mmHg. There is no tricuspid valve stenosis. PULMONIC VALVE The pulmonic valve is not well visualized. Doppler and Color Flow revealed no pulmonic valvular regur gitation. There is no pulmonic valvular stenosis. GREAT VESSELS The aortic root is normal in size. Normal pulmonary venous flow (Doppler). The IVC is normal in size and collapses >50% with inspiration. PERICARDIAL EFFUSION There is no evidence of significant pericardial effusion. Critical Notification Critical Value: No <Conclusion> Left ventricle systolic function is normal. The Ejection Fraction is 50-55%. There is normal LV segmental wall motion.
[2017-03-20] MEDS ORDERED: IOHEXOL 300 MG/ML 100ML VIAL. ONE ×2 (13:20→14:46)
[2017-03-20] MEDS ORDERED: LIDOCAINE 2% 20 ML VIAL. ONE (13:54)
[2017-03-20] MEDS ORDERED: fentaNYL PF VIAL 100 MCG/2 ML VIAL ONE (14:27)
[2017-03-20] MEDS ORDERED: VERAPAMIL 5 MG/2 ML VIAL. ONE (14:27)
[2017-03-20] MEDS ORDERED: HEPARIN for IV BOLUS 10,000 UNIT/10 ML VIAL. ONE (14:27)
[2017-03-20] MEDS ORDERED: MIDAZOLAM HCL/PF 2 MG/2 ML VIAL. ONE (14:27)
[2017-03-20] MEDS ORDERED: NITROGLYCERIN 200 MCG/2 ML SYRINGE FOR CATH/VASC LAB. ONE (14:27)
[2017-03-20] MEDS ORDERED: TIROFIBAN 12.5MG -0.9% NS 250 ML IV ONE (14:40)
[2017-03-20] MEDS ORDERED: MIDAZOLAM HCL/PF 2 MG/2 ML VIAL. IV ONE (15:00)
[2017-03-20] MEDS ORDERED: LIDOCAINE 2% 20 ML VIAL. IJ ONE (15:00)
[2017-03-20] MEDS ORDERED: IOHEXOL 300 MG/ML 100ML VIAL. IART ONE (15:00)
[2017-03-20] MEDS ORDERED: NITROGLYCERIN 200 MCG/2 ML SYRINGE FOR CATH/VASC LAB. IART ONE (15:00)
[2017-03-20] MEDS ORDERED: TIROFIBAN 12.5MG -0.9% NS 250 ML IV PRN (15:00)
[2017-03-20] MEDS ORDERED: HEPARIN for IV BOLUS 10,000 UNIT/10 ML VIAL. IART ONE (15:00)
[2017-03-20] MEDS ORDERED: VERAPAMIL 5 MG/2 ML VIAL. IART ONE (15:00)
[2017-03-20] MEDS ORDERED: fentaNYL PF VIAL 100 MCG/2 ML VIAL IV ONE (15:00)
[2017-03-20] MEDS ORDERED: PRASUGREL 10 MG TABLET. ONE (15:08)
[2017-03-20] MEDS ORDERED: PRASUGREL 10 MG TABLET. PO ONE (15:15)
--- NOTE | 2017-03-20 18:37 | CARD ---
APPROVED REPORT Procedure(s) performed: Coronary angiography, [facility] PCI of the LAD HISTORY The patient is a 62 year-old male with a history of : hypertension, dyslipidemia. INDICATION The indication(s) include : non-STEMI Trop of 1.8. PROCEDURE NARRATIVE The patient was brought electively to the cardiac catheterization lab. A timeout was performed confi rming the patient's name, date of , procedure, and site of procedure. All necessary personnel w ere wearing the appropriate protective equipment and radiation monitor devices. After explaining the risks and benefits of the procedure and alternatives, informed consent was obtained. (See nursing no michelle for medications administered). The right wrist was sterilely prepped and draped in the usual fas hion. The right wrist was infiltrated with 1 mL of 2% lidocaine for subcutaneous anesthesia. A 6 Fr ench Terumo glide sheath was inserted into the right radial artery without difficulty. Right and lef t coronary angiography was performed using a 6Fr TIG 4.0 catheter. HEMODYNAMICS: LVEDP 18 mm Hg No gradient on LV to aortic pullback. CORONARY ANGIOGRAPHY: LM is a large caliber vessel with normal angiographic appearance. LAD is a large caliber with a mid 80% hazy lesion. The distal vessel has normal angiographic appearan ce. D1/D2 are moderate caliber vessels with normal angiographic appearance. Ramus is a moderate caliber vessel with normal angiographic apeparance. LCx is a moderate caliber non-dominant vessel with normal angiographic appearance. OM1 is a moderate caliber vessel with normal angiographic appearance. RCA is a large caliber dominant vessel with mid 40-50% stenosis. RPDA and RPL are moderate caliber vessels with normal angiographic appearance. INTERVENTIONAL TECHNIQUE: PCI OF THE LAD Based upon the present symptoms, elevated biomarkers and antibiotic findings and intervention was per formed on the left anterior descending artery. Through a 6 Polish EBU 3.5 guide catheter a pro-water wire was advanced to the distal LAD. Next the lesion was angioplastied with a 3.0 x 12 mm balloon and subsequently stented with a vision 3.5 x 23 mm bare-metal stent at 14 jose f. The proximal aspect of th e stent was then postdilated with a 3.5 x 12 mm noncompliant balloon. Post-PCI angiography revealed e xcellent stent expansion with LILI-3 flow and no evidence of guider wire-related complications. The p atient received 60 mg of Effient at case completion. Conclusion 1. Two-vessel coronary artery disease with culprit lesion in the mid LAD. 2. Successful bare-metal stenting of the mid LAD with a 3.5 x 23 mm vision bare metal stent postdilat ed proximally at high pressure. Recommendations ASA 81mg daily indefinitely Prasugrel 10mg daily for 30 days, then transition to Plavix 75mg daily indefinitely if tolerated. High dose statin therapy Cardiac rehab referral
[2017-03-20] MEDS ORDERED: ATORVASTATIN CALCIUM 40 MG TABLET. PO SCH (21:00)
--- NOTE | 2017-03-21 00:31 | HP ---
ADMIT DATE: 03/20/2017 CHIEF COMPLAINT: Chest pain. HISTORY OF PRESENT ILLNESS: A 62-year-old male patient with a prior history of hypertension, presented to the ER with complaints of chest pain, described it as a chest pressure, present 2-3 hours prior to arrival with some nausea and diaphoresis. Denies any other prior history of coronary artery disease or CABG. The patient received fentanyl and aspirin in the ER, symptoms improved; however, his initial troponin showed mild elevation and he was admitted to the hospital for NSTEMI. Cardiology has been consulted. PAST MEDICAL HISTORY: Hypertension, COPD, low back pain and osteoarthritis. PAST SURGICAL HISTORY: Right hand repair. SOCIAL HISTORY: Quit smoking, former smoker. No alcohol, no drug abuse. FAMILY HISTORY: Unknown to the patient. No significant coronary artery disease. ALLERGIES: NKDA. REVIEW OF SYSTEMS AND PHYSICAL EXAMINATION: Please see my electronic H and P. LABORATORY FINDINGS: CBC within normal limits. Chemistry within normal limits. First set of troponins, 0.017 ____ 0.967. Lipid panel, triglycerides 193, LDL 106, VLDL is 39, HDL is 28. EKG: Sinus rhythm with anterolateral changes with poor R-wave progression as per the ER report. I could not able to look at the EKG. ASSESSMENT: 1. Non-ST elevation myocardial infarction, present on admission. 2. Hypertension. 3. Hyperlipidemia. 4. Prior history of chronic obstructive pulmonary disease. 5. Obesity. PLAN: 1. The patient currently on heparin drip as per ACS protocol and echocardiogram has been ordered. on Telemetry. 2. Planning for a cardiac catheterization this evening. 3. Lipitor. 4. We will try to get hold of his past oral medications 5. Cardiology has been following the patient. 6. PRN hydralazine for HTN 7. see orders. KASEY RENAE MD DR: SATNAM/annette JOB#: [id number] / [id number] MACK
[2017-03-21 03:00] VITALS: BP 129/88
[2017-03-21] MEDS: IPRATRPIUM/ALBUTEROL 0.5/2.5MG 3 ML NEBU. NEB SCH (07:21)
[2017-03-21 07:39] VITALS: BP 164/106
[2017-03-21] MEDS ORDERED: LISINOPRIL 20 MG TABLET PO SCH (09:00)
[2017-03-21] MEDS ORDERED: METOPROLOL TART IMMED RELEASE 25 MG TABLET. PO SCH (09:00)
[2017-03-21] MEDS: ASPIRIN ENTERIC COATED 81 MG TABLET.DR. PO SCH (09:24)
[2017-03-21] MEDS ORDERED: ALBUTEROL SULFATE 2.5 MG/3 ML NEBU. NEB ONE (11:15)
--- NOTE | 2017-03-21 11:15 | PDOC ---
SARIAH DESAI DIE CAST TECHNICIAN 03/21/17 1115: CARDIO Progress Notes Date and Time Date of Service 03/21/2017 Time of Evaluation 1020 Subjective Subjective: No Chest Pain, No Palpitations, No Dizziness, Other (mild SOA with increaseing wheeze) Vitals Vitals Vital Signs Date Time Temp Pulse Resp B/P (MAP) Pulse Ox O2 Delivery O2 Flow Rate FiO2 03/21/17 09:25 86 164/106 03/21/17 07:39 98.0 20 92 Room Air 98.0 03/21/17 07:22 2.0 Weight Weight [ ] Input and Output Intake and Output Intake and Output 03/21/17 07:00 Intake Total 2120 ml Output Total 1175 ml Balance 945 ml Intake Oral 1120 ml IV Total 1000 ml Output Urine Total 1175 ml Laboratory Labs Laboratory Tests Test 03/20/17 12:50 03/20/17 14:37 Heparin Anti-Xa Act, Unfractionated 0.21 IU/mL (0.30-0.70) Troponin I Quantitative 1.856 ng/mL (0.000-0.055) Activated Clotting Time 208 sec (92-181) Physical Exam HEENT: Neck Supple W Full Motion Chest: Symmetric LUNGS: Other (diffuse wheeze) Heart: S1S2, RRR (SR/SB), murmurs (2/6 systolic murmur to LLS border) Abdomen: Soft N/T Extremities: No Edema, No Calf Tenderness Neurology: alert, oriented, follow commands Other Exams right wrist arteriotomy site intact, no swelling or erythema, neurovascular status intact Assessment Assessment 1. NSTEMI: S/P PCI/BMS to mid LAD 2. Asymptomatic bradyarrhythmia: lowest 40. Intermittent started at around 5 AM , between SB and Mobitz type 1. Presently HR 70-80s 2. HTN: labile 3. HLP: new 4. COPD: per PCP. >30 pk yr quit 2 yrs ago. Increased wheeze today 5. Obesity: BMI 37 6. Likely BHARTI: physical features with verbalized PND will need outpt workup. Recommendations 1. DAPT with 81 mg ECASA. Prasugrel for 30 days (samples provided) then transition to plavix 2. No BB due to gelacio. Continue lisinopril and will add HCTZ. Continue with lipitor 3. BMP, Mg, and PCXR today 4. Unable to afford cardiac rehab. Pt did file for medicare a month ago he said , SW consult 5. Pt will need COPD maintenance inhaler more that albuterol inhaler, will defer to PCP 6. Encouraged lifestyle modifications, significant discussion in regards to CAD and compliance to pt and also discussed with daughter (Aide) 7. Encouraged to follow up in office in 4-6 wks. Anticipate DC this afternoon. PHYLLIS CH MD 03/21/17 2156: CARDIO Progress Notes Plan Plan Pt. seen and examined. Agree with above [employer] SALESP[employer] note. No acute events overnight. R radial access site is c/d/i. Plan for DC on plavix and asa. bare metal stent. Will f/u in the office. SARIAH DESAI APRN March 21, 2017 11:15 PHYLLIS CH MD March 21, 2017 21:56
[2017-03-21 11:17] VITALS: BP 137/81
[2017-03-21 12:08] LABS: CALCIUM 8.5 mg/dL (8.5-10.1); CREATININE 0.9 mg/dL (0.7-1.3); GFR 85.8; MAGNESIUM 1.9 mg/dL (1.8-2.4); POTASSIUM 3.9 mmol/L (3.5-5.1)
[2017-03-21] MEDS ORDERED: PRASUGREL 10 MG TABLET. PO ONE (12:45)
[2017-03-21] MEDS ORDERED: methylPREDNISolone SOD SUCC PF 40 MG/ML VIAL. IV ONE (13:15)
--- NOTE | 2017-03-21 14:49 | RAD ---
Indication shortness of air. A single view of the chest was obtained and is compared to a study 2 days previously. Heart size and pulmonary vessels are unchanged. Slightly tortuous thoracic aorta is noted, similar. An acute parenchymal infiltrate in either lung or significant change compared to the previous plain film exam is not seen. IMPRESSION: No acute or focal process. No significant change
[2017-03-21] MEDS ORDERED: PROAIR HFA8.5 GM INH (15:23)
[2017-03-21] MEDS ORDERED: PRAS10TA9 PO (15:23)
[2017-03-21] MEDS ORDERED: HYDR12.53 PO (15:23)
[2017-03-21] MEDS ORDERED: ATOR40TA59 PO (15:23)
[2017-03-21] MEDS ORDERED: ASPI81TA9 PO (15:23)
[2017-03-21] MEDS ORDERED: LISI-334 PO (15:23)
[2017-03-22] MEDS ORDERED: PRASUGREL 10 MG TABLET. PO SCH (08:00)
[2017-03-22] MEDS ORDERED: hydroCHLOROthiazide 12.5 MG CAPSULE PO SCH (09:00)
== END 2017-03-21 17:30 | disposition home or self-care (01) | DRG 249 ==
LOC: ER 20:57 → 2 SOUTH 21:51
PROVIDERS: ADMIT Internal Medicine; ATTEND Internal Medicine
PROC: 4A023N7 Measurement of Cardiac Sampling and Pressure, Left Heart, Percutaneous Approach (ICD-10-PCS; principal; 2017-03-20)
PROC: 02703DZ Dilation of Coronary Artery, One Artery with Intraluminal Device, Percutaneous Approach (ICD-10-PCS; 2017-03-20)
PROC: B2111ZZ Fluoroscopy of Multiple Coronary Arteries using Low Osmolar Contrast (ICD-10-PCS; 2017-03-20)
DX: I21.4 Non-ST elevation (NSTEMI) myocardial infarction (principal); J44.1 Chronic obstructive pulmonary disease with (acute) exacerbation; E66.9 Obesity, unspecified; Z68.37 Body mass index [BMI] 37.0-37.9, adult; E78.5 Hyperlipidemia, unspecified; M19.90 Unspecified osteoarthritis, unspecified site; G47.33 Obstructive sleep apnea (adult) (pediatric); I10 Essential (primary) hypertension; M54.5 Low back pain; I25.2 Old myocardial infarction; Z98.61 Coronary angioplasty status; Z79.82 Long term (current) use of aspirin
CPT/HCPCS: 36415; 71010; 80048; 80061; 80076; 83735; 84443; 84484; 85007; 85027; 85347; 85520; 92928; 93005; 93306; 93458; 94250; 94640; 94760; C1725; C1769; C1876; C1887; C1892; J0360; J2250; J2920; J3010; J3490; J7620; Q9967; 99285-25; J3246

== ENCOUNTER → 2017-07-13 | Outpatient (CLI) | payer SELFPAY ==
[~2017-07-13] MED LIST changes: +ASPI-612 PO; +ATOR40TA59 PO; +HYDR12.53 PO; +LISI-334 PO; +PRAS10TA9 PO
[2017-07-13 11:47] LABS: ALBUMIN 3.5 g/dL (3.4-5.0); ALBUMIN/GLOBULIN RATIO 0.7 (1.0-1.7); CALCIUM 8.8 mg/dL (8.5-10.1); CHOLESTEROL/HDL RATIO 7.1; CREATININE 0.9 mg/dL (0.7-1.3); GFR 85.8; POTASSIUM 3.9 mmol/L (3.5-5.1); TOTAL BILIRUBIN 0.2 mg/dL (0.2-1.0); TOTAL PROTEIN 8.5 g/dL (6.4-8.2)
== END | disposition home or self-care (01) ==
LOC: LAB 11:08
PROVIDERS: ATTEND Nurse Practitioner
DX: I10 Essential (primary) hypertension (principal); E78.5 Hyperlipidemia, unspecified
CPT/HCPCS: 36415; 80053; 80061

== ENCOUNTER 2017-07-25 06:04 | Emergency (ER) | payer SELFPAY ==
[~2017-07-25] VITALS: Ht 160 cm; Wt 79.4 kg
[2017-07-25] MEDS ORDERED: IPRATRPIUM/ALBUTEROL 0.5/2.5MG 3 ML NEBU. NEB ONE (06:30)
[2017-07-25] MEDS ORDERED: ALBUTEROL SULFATE 2.5 MG/3 ML NEBU. NEB ONE (06:30)
--- NOTE | 2017-07-25 06:40 | PHYS DOC ---
Past Medical History Past Medical History: Asthma, Hypertension Past Surgical History: No Surgical History Alcohol Use: Heavy Drug Use: None Adult General Chief Complaint Chief Complaint: SHORTNESS OF BREATH HPI HPI Patient is a 62 year old male who presents with sob, cough, chest pain. Patient states he's had symptoms of 2 days including cough, sharp chest pain when he coughs and feels short of breath. Patient has a history of COPD and normally uses an inhaler but he has ran out. Patient had a heart catheter approximately one month ago with a stent placed. He states he has been taking his Plavix since then. He does not have a primary care physician and cannot recall the physician's should cared for him in the hospital. He denies any known fevers, no nausea or vomiting. The pain is not constant in his chest. Review of Systems Review of Systems Constitutional: Denies fever or chills [] Eyes: Denies change in visual acuity, redness, or eye pain [] HENT: Denies nasal congestion or sore throat [] Respiratory: Per history of present illness Cardiovascular: No additional information not addressed in HPI [] GI: Denies abdominal pain, nausea, vomiting, bloody stools or diarrhea [] : Denies dysuria or hematuria [] Musculoskeletal: Denies back pain or joint pain [] Integument: Denies rash or skin lesions [] Neurologic: Denies headache, focal weakness or sensory changes [] Current Medications Current Medications Current Medications Medications (Trade) Dose Ordered Sig/Sadi Start Time Stop Time Status Last Admin Dose Admin Albuterol Sulfate (Ventolin Neb Soln) 5 mg 1X ONCE 07/25/17 06:30 07/25/17 06:31 DC 07/25/17 06:29 5 MG Albuterol/ Ipratropium (Duoneb) 3 ml 1X ONCE 07/25/17 06:30 07/25/17 06:31 DC 07/25/17 06:24 3 ML Prednisone (Prednisone) 50 mg 1X ONCE 07/25/17 07:45 07/25/17 07:46 DC 07/25/17 07:54 50 MG Allergies Allergies Allergies Coded Allergies Type Severity Reaction Last Updated Verified No Known Drug Allergies 10/01/16 No Physical Exam Physical Exam Constitutional: Well developed, well nourished, ill appearing, talks in shortened sentences HENT: Normocephalic, atraumatic, bilateral external ears normal, oropharynx moist, no oral exudates, nose normal. [] Eyes: PERRLA, EOMI, conjunctiva normal, no discharge. [] Neck: Normal range of motion, no tenderness, supple, no stridor. [] Cardiovascular:Heart rate tachycardic with regular rhythm Lungs & Thorax: Poor air movement diffusely, prolonged expiratory phase Abdomen: Bowel sounds normal, soft, no tenderness, no masses, no pulsatile masses. [] Skin: Warm, dry, no erythema, no rash. [] Back: No tenderness, no CVA tenderness. [] Extremities: No tenderness, no cyanosis, no clubbing, ROM intact, no edema. Negative Homans bilaterally Neurologic: Alert and oriented X 3, normal motor function, normal sensory function, no focal deficits noted. [] Psychologic: Affect normal, judgement normal, mood normal. [] Current Patient Data Vital Signs Vital Signs Date Time Temp Pulse Resp B/P (MAP) Pulse Ox O2 Delivery O2 Flow Rate FiO2 07/25/17 07:52 96 23 125/73 (90) 96 Nasal Cannula 3.0 07/25/17 06:13 98.9 98.9 Lab Values Laboratory Tests Test 07/25/17 06:29 White Blood Count 10.3 x10^3/uL (4.0-11.0) Red Blood Count 5.41 x10^6/uL (4.30-5.70) Hemoglobin 17.6 g/dL (13.0-17.5) H Hematocrit 51.3 % (39.0-53.0) Mean Corpuscular Volume 95 fL (79-100) Mean Corpuscular Hemoglobin 32 pg (25-35) Mean Corpuscular Hemoglobin Concent 34 g/dL (31-37) Red Cell Distribution Width 13.7 % (11.5-14.5) Platelet Count 294 x10^3/uL (140-400) Neutrophils (%) (Auto) 57 % (31-73) Lymphocytes (%) (Auto) 19 % (24-48) L Monocytes (%) (Auto) 9 % (0-9) Eosinophils (%) (Auto) 15 % (0-3) H Basophils (%) (Auto) 1 % (0-3) Neutrophils # (Auto) 5.8 x10^3uL (1.8-7.7) Lymphocytes # (Auto) 1.9 x10^3/uL (1.0-4.8) Monocytes # (Auto) 0.9 x10^3/uL (0.0-1.1) Eosinophils # (Auto) 1.5 x10^3/uL (0.0-0.7) H Basophils # (Auto) 0.1 x10^3/uL (0.0-0.2) Platelet Estimate Pending Prothrombin Time 12.6 SEC (11.7-14.0) Prothrombin Time INR 1.0 (0.8-1.1) Sodium Level 136 mmol/L (136-145) Potassium Level 3.7 mmol/L (3.5-5.1) Chloride Level 99 mmol/L (98-107) Carbon Dioxide Level 26 mmol/L (21-32) Anion Gap 11 (6-14) Blood Urea Nitrogen 17 mg/dL (8-26) Creatinine 0.8 mg/dL (0.7-1.3) Estimated GFR (Cockcroft-Gault) 98.3 BUN/Creatinine Ratio 21 (6-20) H Glucose Level 144 mg/dL (70-99) H Lactic Acid Level 1.1 mmol/L (0.4-2.0) Calcium Level 8.8 mg/dL (8.5-10.1) Magnesium Level 1.8 mg/dL (1.8-2.4) Total Bilirubin 0.4 mg/dL (0.2-1.0) Aspartate Amino Transferase (AST) 36 U/L (15-37) Alanine Aminotransferase (ALT) 43 U/L (16-63) Alkaline Phosphatase 79 U/L (46-116) Troponin I Quantitative < 0.017 ng/mL (0.000-0.055) PU-[id number]-Type Natriuretic Peptide 68 pg/mL (0-124) Total Protein 8.4 g/dL (6.4-8.2) H Albumin 3.5 g/dL (3.4-5.0) Albumin/Globulin Ratio 0.7 (1.0-1.7) L Laboratory Tests 07/25/17 06:29 Laboratory Tests 07/25/17 06:29 EKG EKG 105 bpm, sinus tach, normal axis, normal intervals, no appreciable ST elevation or depression, nonischemic T waves , interpreted by me[] Radiology/Procedures Radiology/Procedures CXR: IMPRESSION: No radiographic evidence of an acute cardiopulmonary process. [] Course & Med Decision Making Course & Med Decision Making Pertinent Labs and Imaging studies reviewed. (See chart for details) She was given DuoNeb and albuterol breathing treatments. Patient reports feeling much better. He was taken off oxygen to maintain sats greater than 90%. Chest x-ray did not show any acute process, lab work unremarkable. Patient referred to the referral sheet to schedule follow-up. 4 more days of steroids, albuterol inhaler and nebs, machine RX given. Return precautions given. Dragon Disclaimer Dragon Disclaimer This electronic medical record was generated, in whole or in part, using a voice recognition dictation system. Departure Departure Disposition: HOME, SELF-CARE Condition: IMPROVED Referrals: NO PCP (PCP) Patient Instructions: Chronic Obstructive Pulmonary Disease Exacerbation Scripts Albuterol Sulfate (PROAIR HFA INHALER) 8.5 Gm Hfa.aer.ad 2 PUFF INH PRN Q6HRS Y for SHORTNESS OF BREATH, #1 INHALER 0 Refills Prov: FRANCA MARTI MD 07/25/17 Albuterol Sulfate (ALBUTEROL SULFATE NEB SOLN) 2.5 Mg/3 Ml Vial.neb 1 VIAL NEB PRN Q4HRS, #50 VIAL Prov: FRANCA MARTI MD 07/25/17 Prednisone (PREDNISONE) 50 Mg Tablet 1 TAB PO DAILY, #4 TAB starting tomorrow Prov: FRANCA MARTI MD 07/25/17 FRANCA MARTI MD Jul 25, 2017 06:40
[2017-07-25 06:44] LABS: BASO # 0.1 x10^3/uL (0.0-0.2); BASO % 1 % (0-3); EOS % 15 % (0-3); HEMATOCRIT 51.3 % (39.0-53.0); HEMOGLOBIN 17.6 g/dL (13.0-17.5); LYMPH # 1.9 x10^3/uL (1.0-4.8); LYMPH % 19 % (24-48); MEAN CORPUSCULAR HEMOGLOBIN 32 pg (25-35); MEAN CORPUSCULAR HGB CONC 34 g/dL (31-37); MEAN CORPUSCULAR VOLUME 95 fL (79-100); MONO % 9 % (0-9); NEUT % 57 % (31-73); PLATELET COUNT 294 x10^3/uL (140-400); RED BLOOD COUNT 5.41 x10^6/uL (4.30-5.70); RED CELL DISTRIBUTION WIDTH 13.7 % (11.5-14.5); WHITE BLOOD COUNT 10.3 x10^3/uL (4.0-11.0)
[2017-07-25 07:02] LABS: CALCIUM 8.8 mg/dL (8.5-10.1); CREATININE 0.8 mg/dL (0.7-1.3); GFR 98.3; POTASSIUM 3.7 mmol/L (3.5-5.1)
--- NOTE | 2017-07-25 07:06 | EKG ---
[facility] [address] [place] [address] Test Date: 2017-07-25 Test Time: 06:14:32 Pat Name: GRANT CHOI Department: Room: Gender: Cloth Tester Quality: : 1955 Requested By: FRANCA MARTI Order Number: [id number] Reading MD: Measurements Intervals [place] Rate: 105 P: 60 ND: 156 QRS: -11 QRSD: 86 T: 80 QT: 332 QTc: 443 Interpretive Statements SINUS TACHYCARDIA LEFT ATRIAL ABNORMALITY LEFTWARD AXIS T ABNORMALITY IN HIGH LATERAL LEADS RI6.01 Unconfirmed report No previous ECG available for comparison
[2017-07-25 07:08] LABS: ALBUMIN 3.5 g/dL (3.4-5.0); ALBUMIN/GLOBULIN RATIO 0.7 (1.0-1.7); MAGNESIUM 1.8 mg/dL (1.8-2.4); TOTAL BILIRUBIN 0.4 mg/dL (0.2-1.0); TOTAL PROTEIN 8.4 g/dL (6.4-8.2)
--- NOTE | 2017-07-25 07:10 | RAD ---
EXAM: CHEST 1 VIEW History: Cough, shortness of breath COMPARISON: 03/21/2017 TECHNIQUE: Single portable radiograph of the chest FINDINGS: The cardiac silhouette is unremarkable. The lungs are clear bilaterally. The costophrenic sulci are clear and well demarcated. IMPRESSION: No radiographic evidence of an acute cardiopulmonary process.
[2017-07-25 07:26] LABS: PROTHROMBIN TIME PATIENT 12.6 SEC (11.7-14.0)
[2017-07-25] MEDS ORDERED: predniSONE 20 MG TABLET PO ONE (07:45)
[2017-07-25 07:52] VITALS: BP 125/73
[2017-07-25] MEDS ORDERED: PROAIR HFA8.5 GM INH (08:12)
[2017-07-25] MEDS ORDERED: PRED50TA PO (08:12)
[2017-07-25] MEDS ORDERED: ALBU2.5V5 NEB (08:12)
[2017-07-25 10:57] LABS: % EOS 12 % (0-5); PLT ESTIMATE ADEQUATE (ADEQUATE)
== END 2017-07-25 08:20 | disposition home or self-care (01) ==
LOC: ER 06:04
DX: R06.02 Shortness of breath (principal); R05 Cough; R07.89 Other chest pain; I10 Essential (primary) hypertension; F10.20 Alcohol dependence, uncomplicated; J44.9 Chronic obstructive pulmonary disease, unspecified
CPT/HCPCS: 36415; 71010; 80053; 83605; 83735; 83880; 84484; 85007; 85025; 85610; 87040; 93005; 94640; 99285; J7512; J7613; J7620

== ENCOUNTER 2017-09-15 03:27 | Inpatient (IN) | payer MEDICARE ==
[2017-09-15] VITALS (7 sets, daily range): BP systolic 125–157; BP diastolic 67–96
[~2017-09-15] VITALS: Ht 162.6 cm; Wt 95.7 kg
[~2017-09-15 03:27] MED LIST changes: +ALBU2.5V5 NEB; +BENZ-8 PO; +DOXY100T PO; +METF500T PO; +PRED20TA PO; +PRED50TA PO
[2017-09-15 03:54] LABS: BASO % 1 % (0-3); EOS % 17 % (0-3); HEMATOCRIT 49.1 % (39.0-53.0); HEMOGLOBIN 16.7 g/dL (13.0-17.5); LYMPH # 1.6 x10^3/uL (1.0-4.8); LYMPH % 19 % (24-48); MEAN CORPUSCULAR HEMOGLOBIN 32 pg (25-35); MEAN CORPUSCULAR HGB CONC 34 g/dL (31-37); MEAN CORPUSCULAR VOLUME 94 fL (79-100); MONO % 8 % (0-9); NEUT % 56 % (31-73); PLATELET COUNT 244 x10^3/uL (140-400); RED BLOOD COUNT 5.22 x10^6/uL (4.30-5.70); RED CELL DISTRIBUTION WIDTH 13.4 % (11.5-14.5); WHITE BLOOD COUNT 8.7 x10^3/uL (4.0-11.0)
[2017-09-15] MEDS ORDERED: IPRATRPIUM/ALBUTEROL 0.5/2.5MG 3 ML NEBU. NEB ONE ×3 (04:00)
[2017-09-15] MEDS ORDERED: methylPREDNISolone SOD SUCC PF 125 MG/2 ML VIAL. IV ONE (04:00)
[2017-09-15 04:08] LABS: CREATININE 0.8 mg/dL (0.7-1.3); GFR 98.3; POTASSIUM 4.1 mmol/L (3.5-5.1)
[2017-09-15 04:13] LABS: ALBUMIN 3.6 g/dL (3.4-5.0); ALBUMIN/GLOBULIN RATIO 0.9 (1.0-1.7); TOTAL BILIRUBIN 0.6 mg/dL (0.2-1.0); TOTAL PROTEIN 7.5 g/dL (6.4-8.2)
[2017-09-15] MEDS ORDERED: ONDANSETRON PF 4 MG/2 ML VIAL. IV PRN (05:15)
--- NOTE | 2017-09-15 05:57 | PHYS DOC ---
Past Medical History Past Medical History: Asthma, COPD, High Cholesterol, Heart Disease, Hypertension Additional Past Medical Histor: LAD stent placed in february Past Surgical History: Angioplasty Alcohol Use: Occasionally Drug Use: None Adult General Chief Complaint Chief Complaint: SHORTNESS OF BREATH HPI HPI Patient is a 62 year old gentleman with a history significant for COPD who presents here today complaining of shortness of breath 1-2 days. Patient reports she was recently discharged from the hospital secondary to a COPD exacerbation. Patient reports she does not have any of his inhalers at home and thinks that might have exacerbated. Patient is complaining of a nonproductive cough. No fevers shakes chills nausea vomiting or diarrhea. Patient has any abdominal pain or chest pain. Patient denies any lower STEMI edema. Patient denies any history of a DVT or PE. Patient denies any orthopnea or PND. Physical Exam Review of systems: Constitutional: Denies fever or chills Eyes: Denies change in visual acuity, redness, or eye pain HENT: nasal congestion Respiratory: Denies cough or shortness of breath All other systems were reviewed and found to be within normal limits, except as documented in this note. Physical exam: Constitutional: Well developed, well nourished, no acute distress, non-toxic appearance. HENT: Normocephalic, atraumatic, bilateral external ears normal, oropharynx moist, no oral exudates, nose normal. Eyes: PERRLA, EOMI, conjunctiva normal, no discharge. Neck: Normal range of motion, no tenderness, supple, no stridor. Cardiovascular:Heart rate regular rhythm, Lungs & Thorax: Bilateral breath sounds clear to auscultation Abdomen: Bowel sounds normal, soft, no tenderness, no masses, no pulsatile masses. Skin: Warm, dry, no erythema, no rash. Back: No tenderness, no CVA tenderness. Extremities: No tenderness, no cyanosis, no clubbing, ROM intact, no edema. Neurologic: Alert and oriented X 3, normal motor function, normal sensory function, no focal deficits noted. Psychologic: Affect normal, judgement normal, mood normal. Chest x-ray reveals normal heart no infiltrates or effusions. Assessment and plan: This is a 62-year-old gentleman who presents here today complaining of shortness of breath. Patient does have a history significant for COPD. Patient has received Solu-Medrol, DuoNeb's, patient be admitted. Patient is still short of breath after his neb treatments does not feel comfortable going home. Patient be admitted secondary to his shortness of breath. Current Medications Current Medications Current Medications Medications (Trade) Dose Ordered Sig/Sadi Start Time Stop Time Status Last Admin Dose Admin Albuterol/ Ipratropium (Duoneb) 3 ml 1X ONCE 09/15/17 04:00 09/15/17 04:01 DC Methylprednisolone Sodium Succinate (SOLU-Medrol 125MG VIAL) 125 mg 1X ONCE 09/15/17 04:00 09/15/17 04:01 DC 09/15/17 04:15 125 MG Allergies Allergies Allergies Coded Allergies Type Severity Reaction Last Updated Verified No Known Drug Allergies 10/01/16 No Current Patient Data Vital Signs Vital Signs Date Time Temp Pulse Resp B/P (MAP) Pulse Ox O2 Delivery O2 Flow Rate FiO2 09/15/17 04:17 97 Room Air 09/15/17 03:42 98.3 96 26 162/102 (122) 98.3 Lab Values Laboratory Tests Test 09/15/17 03:38 White Blood Count 8.7 x10^3/uL (4.0-11.0) Red Blood Count 5.22 x10^6/uL (4.30-5.70) Hemoglobin 16.7 g/dL (13.0-17.5) Hematocrit 49.1 % (39.0-53.0) Mean Corpuscular Volume 94 fL (79-100) Mean Corpuscular Hemoglobin 32 pg (25-35) Mean Corpuscular Hemoglobin Concent 34 g/dL (31-37) Red Cell Distribution Width 13.4 % (11.5-14.5) Platelet Count 244 x10^3/uL (140-400) Neutrophils (%) (Auto) 56 % (31-73) Lymphocytes (%) (Auto) 19 % (24-48) L Monocytes (%) (Auto) 8 % (0-9) Eosinophils (%) (Auto) 17 % (0-3) H Basophils (%) (Auto) 1 % (0-3) Neutrophils # (Auto) 4.8 x10^3uL (1.8-7.7) Lymphocytes # (Auto) 1.6 x10^3/uL (1.0-4.8) Monocytes # (Auto) 0.7 x10^3/uL (0.0-1.1) Eosinophils # (Auto) 1.5 x10^3/uL (0.0-0.7) H Basophils # (Auto) 0.0 x10^3/uL (0.0-0.2) Platelet Estimate Pending Sodium Level 139 mmol/L (136-145) Potassium Level 4.1 mmol/L (3.5-5.1) Chloride Level 102 mmol/L (98-107) Carbon Dioxide Level 26 mmol/L (21-32) Anion Gap 11 (6-14) Blood Urea Nitrogen 15 mg/dL (8-26) Creatinine 0.8 mg/dL (0.7-1.3) Estimated GFR (Cockcroft-Gault) 98.3 BUN/Creatinine Ratio 19 (6-20) Glucose Level 162 mg/dL (70-99) H Calcium Level 9.0 mg/dL (8.5-10.1) Total Bilirubin 0.6 mg/dL (0.2-1.0) Aspartate Amino Transferase (AST) 31 U/L (15-37) Alanine Aminotransferase (ALT) 51 U/L (16-63) Alkaline Phosphatase 70 U/L (46-116) Troponin I Quantitative < 0.017 ng/mL (0.000-0.055) KM-Xtd-N-Type Natriuretic Peptide 57 pg/mL (0-124) Total Protein 7.5 g/dL (6.4-8.2) Albumin 3.6 g/dL (3.4-5.0) Albumin/Globulin Ratio 0.9 (1.0-1.7) L Laboratory Tests 09/15/17 03:38 Laboratory Tests 09/15/17 03:38 EKG EKG [] Radiology/Procedures Radiology/Procedures [] Course & Med Decision Making Course & Med Decision Making Pertinent Labs and Imaging studies reviewed. (See chart for details) [] Dragon Disclaimer Dragon Disclaimer This electronic medical record was generated, in whole or in part, using a voice recognition dictation system. Departure Departure Impression: Primary Impression: COPD exacerbation Disposition: 09 ADMITTED INPATIENT Admitting Physician: Chen Quispe Condition: IMPROVED Referrals: NO PCP (PCP) LEIA SNELL MD Sep 15, 2017 05:57
--- NOTE | 2017-09-15 06:38 | EKG ---
[facility] [address] [place] [address] Test Date: 2017-09-15 Test Time: 03:38:27 Pat Name: GRANT CRUZ Department: Room: [facility] Gender: M Personnel Consultant: : 1955 Requested By: LEIA SNELL Order Number: [id number] Reading MD: Champ Pickens MD Measurements Intervals [place] Rate: 89 P: 60 DE: 152 QRS: -3 QRSD: 96 T: 75 QT: 360 QTc: 439 Interpretive Statements SINUS RHYTHM Electronically Signed On 09-18-2017 14:11:58 ADULT LITERACY TEACHER by Champ Pickens MD
[2017-09-15] MEDS ORDERED: DEXTROSE 50% 25 GM / 50ML DISP.SYRIN. IV PRN (07:30)
--- NOTE | 2017-09-15 08:03 | RAD ---
AP chest radiograph 09/15/2017 Clinical indication: Chest pain Comparison: 09/01/2017 chest Findings: Cardiac and mistitled silhouettes are unremarkable. There is mild bibasilar atelectasis. No pleural effusion or pneumothorax. Impression: Mild bibasilar atelectasis without evidence of CHF or consolidating pneumonia.
[2017-09-15] MEDS: IPRATRPIUM/ALBUTEROL 0.5/2.5MG 3 ML NEBU. NEB SCH ×4 (08:09→20:29)
[2017-09-15 08:39] LABS: % EOS 17 % (0-5); PLT ESTIMATE ADEQUATE (ADEQUATE)
--- NOTE | 2017-09-15 10:35 | CONS ---
DATE OF CONSULTATION: 09/15/2017 ATTENDING PHYSICIAN: Chen Quispe MD. REASON FOR CONSULTATION: Dyspnea. HISTORY OF PRESENT ILLNESS: The patient is a 62-year-old male who is obese and has history of asthma. He was last hospitalized about a week ago. He came into the hospital with shortness of breath and coughing along with wheezing. The patient denies any fever. Denies any purulent sputum production. He is not on any steroid inhaler at home. No fever, no chills. No history of deep vein thrombosis or pulmonary embolism. Chest x-ray was reviewed and shows possible basilar atelectasis. Otherwise, no definite consolidation observed. Consultation requested for further evaluation and management. He is currently requiring oxygen initially with 3 liters, now at 2 liters and 97% saturation. He does not have home oxygen. PAST MEDICAL HISTORY: History of asthma, dyslipidemia, heart disease, and hypertension. History of LAD stent placed in February. PAST SURGICAL HISTORY: Angioplasty. ALLERGIES: None. MEDICATIONS: Reviewed as listed in the MRAD including DuoNeb. REVIEW OF SYSTEMS: Twelve-point system obtained. Pertinent positives discussed in my history of present illness, otherwise noncontributory. All systems that were negative were reviewed as well. SOCIAL HISTORY: Nonsmoker. FAMILY HISTORY: Noncontributory to lungs. PHYSICAL EXAMINATION: GENERAL: He is awake, following commands. VITAL SIGNS: Reviewed, pulse ox 97% on 2 liters, afebrile. HEENT: Sclerae nonicteric. NECK: Supple. LUNGS: With faint expiratory wheezes. CARDIOVASCULAR: Regular rate and rhythm. ABDOMEN: Soft, obese. EXTREMITIES: With no pitting edema. LABORATORY DATA: Reviewed. White cell count normal 8.7, hemoglobin is 16.7. BUN 15, creatinine 0.8. IMPRESSION: 1. Dyspnea with acute hypoxic respiratory failure secondary to acute asthma exacerbation. 2. No definite pneumonia seen. RECOMMENDATIONS: 1. I have discussed with the patient regarding the importance of using steroid inhaler as an outpatient to have a better control of his asthma. He understands that. We will write a prescription for Flovent at the time of discharge. 2. In the meantime, continue DuoNeb and add Pulmicort and add steroid IV. 3. Wean off oxygen. 4. We will need a 6-minute walk test at the time of discharge. CASPER GIVENS MD DR: Shama JOB#: [id number] / [id number]
[2017-09-15] MEDS: methylPREDNISolone SOD SUCC PF 40 MG/ML VIAL. IV SCH ×3 (11:25→20:21)
[2017-09-15] MEDS: BUDESONIDE 0.5 MG/2 ML NEBU. NEB SCH ×2 (11:28→20:29)
[2017-09-15] MEDS: metFORMIN 500 MG TABLET PO SCH (17:40)
[2017-09-15] MEDS: PRASUGREL 10 MG TABLET. PO SCH (17:40)
[2017-09-15] MEDS: ASPIRIN ENTERIC COATED 81 MG TABLET.DR. PO SCH (17:41)
[2017-09-15] MEDS: LISINOPRIL 20 MG TABLET PO SCH (17:41)
--- NOTE | 2017-09-15 18:05 | HP ---
ADMIT DATE: 09/15/2017 CHIEF COMPLAINT: Shortness of breath. HISTORY OF PRESENT ILLNESS: The patient is a 62-year-old gentleman with morbid obesity and asthma, well known to our service with frequent admissions for exacerbations. He presented to the Emergency Room last night with shortness of breath for about a day, coughing and wheezing. He denied any fevers, any significant sputum production. In the Emergency Room, chest x-ray revealed possible bibasilar atelectasis, no other consolidation; however, was observed. He was therefore admitted for asthma exacerbation. PAST MEDICAL HISTORY: Asthma, heart disease, hypertension, hyperlipidemia, status post stent placement to LAD in February 2017. FAMILY HISTORY: No respiratory issues. SOCIAL HISTORY: Never smoked, no toxic habits. REVIEW OF SYSTEMS: Positive as per HPI. Rest of organ system review is negative. PHYSICAL EXAMINATION: VITAL SIGNS: From today show a blood pressure of 146/93, heart rate of 90, respiratory rate at 22. He is afebrile. GENERAL: This is a morbidly obese gentleman, alert and oriented, in no acute distress, having mild difficulty speaking in full sentences due to shortness of breath. HEENT: Shows no scleral icterus. NECK: Thick, no palpable lymphadenopathy. LUNGS: Showing wheezes with poor air movement. HEART: Has regular rate and rhythm. ABDOMEN: Massively obese, positive bowel sounds. EXTREMITIES: Show no edema. SKIN: Warm, soft and dry. LABORATORY DATA: CBC with a WBC of 8.7, hemoglobin 16.7, platelets of 244. Chemistries with a BUN and creatinine of 15 and 0.8, normal electrolytes, normal LFTs. RADIOGRAPHIC FINDINGS: Chest x-ray shows mild bibasilar atelectasis without evidence of CHF or consolidated pneumonia. ASSESSMENT AND PLAN: The patient is a 62-year-old gentleman with asthma, once again presenting with asthma exacerbations. He has been started on steroids. He is getting inhalers and supplemental oxygen and symptoms are improving. Pulmonary consult has been requested as well. He does have significant heart disease, but is asymptomatic from this standpoint at this time. We will continue his secondary prevention medications. Blood pressure is somewhat elevated, possibly secondary to respiratory status. We will continue all his home medications. AZIZA CISNEROS MD DR: DIANA/annette JOB#: [id number] / [id number] MACK
[2017-09-15] MEDS: ATORVASTATIN CALCIUM 40 MG TABLET. PO SCH (20:21)
[2017-09-16 03:05] VITALS: BP 108/81
[2017-09-16 04:35] LABS: BASO % 0 % (0-3); EOS % 0 % (0-3); HEMATOCRIT 47.8 % (39.0-53.0); HEMOGLOBIN 16.1 g/dL (13.0-17.5); LYMPH # 1.1 x10^3/uL (1.0-4.8); LYMPH % 9 % (24-48); MEAN CORPUSCULAR HEMOGLOBIN 32 pg (25-35); MEAN CORPUSCULAR HGB CONC 34 g/dL (31-37); MEAN CORPUSCULAR VOLUME 94 fL (79-100); MONO % 3 % (0-9); NEUT % 88 % (31-73); PLATELET COUNT 240 x10^3/uL (140-400); RED BLOOD COUNT 5.07 x10^6/uL (4.30-5.70); RED CELL DISTRIBUTION WIDTH 13.5 % (11.5-14.5); WHITE BLOOD COUNT 12.4 x10^3/uL (4.0-11.0)
[2017-09-16 04:47] LABS: CALCIUM 9.1 mg/dL (8.5-10.1); POTASSIUM 3.9 mmol/L (3.5-5.1)
[2017-09-16] MEDS: methylPREDNISolone SOD SUCC PF 40 MG/ML VIAL. IV SCH ×3 (05:55→19:52)
[2017-09-16 06:23] LABS: PLT ESTIMATE ADEQUATE (ADEQUATE)
[2017-09-16] MEDS: IPRATRPIUM/ALBUTEROL 0.5/2.5MG 3 ML NEBU. NEB SCH ×3 (06:56→19:57)
[2017-09-16] MEDS: BUDESONIDE 0.5 MG/2 ML NEBU. NEB SCH ×2 (06:56→19:57)
[2017-09-16 07:21] VITALS: BP 151/70
[2017-09-16] MEDS: ASPIRIN ENTERIC COATED 81 MG TABLET.DR. PO SCH (08:19)
[2017-09-16] MEDS: LISINOPRIL 20 MG TABLET PO SCH (08:20)
[2017-09-16] MEDS: metFORMIN 500 MG TABLET PO SCH ×2 (08:20→17:07)
[2017-09-16] MEDS: PRASUGREL 10 MG TABLET. PO SCH (08:20)
--- NOTE | 2017-09-16 10:09 | PDOC ---
PROGRESS NOTES Chief Complaint Chief Complaint Acute hypoxic respir failure ASSESSMENT AND PLAN: 1. Asthma exacerbation: on steroids, nebs suppl O2. appreciate Dr Alaniz's input 2. CAD: no acute issues. cont 2ary prevention meds 3. HTN: better controlled; sl elevated this AM prior to med administration 4. DM: on metformin; poor control with steroids; cont ISS History of Present Illness History of Present Illness remains SOB, no cough Vitals Vitals Vital Signs Date Time Temp Pulse Resp B/P (MAP) Pulse Ox O2 Delivery O2 Flow Rate FiO2 09/16/17 08:22 Nasal Cannula 2.0 09/16/17 08:20 90 151/70 09/16/17 07:21 97.5 22 94 97.5 Physical Exam General: Alert, Oriented X3, Cooperative, No acute distress Heart: Regular rate Lungs: Clear, Other (decreased breath sounds) Abdomen: Normal bowel sounds, Soft, No tenderness Extremities: No edema Skin: No rashes Labs LABS Laboratory Tests Test 09/15/17 11:21 09/15/17 16:23 09/15/17 21:20 09/16/17 03:45 Glucose (Fingerstick) 304 mg/dL (70-99) 264 mg/dL (70-99) 258 mg/dL (70-99) White Blood Count 12.4 x10^3/uL (4.0-11.0) Red Blood Count 5.07 x10^6/uL (4.30-5.70) Hemoglobin 16.1 g/dL (13.0-17.5) Hematocrit 47.8 % (39.0-53.0) Mean Corpuscular Volume 94 fL (79-100) Mean Corpuscular Hemoglobin 32 pg (25-35) Mean Corpuscular Hemoglobin Concent 34 g/dL (31-37) Red Cell Distribution Width 13.5 % (11.5-14.5) Platelet Count 240 x10^3/uL (140-400) Neutrophils (%) (Auto) 88 % (31-73) Lymphocytes (%) (Auto) 9 % (24-48) Monocytes (%) (Auto) 3 % (0-9) Eosinophils (%) (Auto) 0 % (0-3) Basophils (%) (Auto) 0 % (0-3) Neutrophils # (Auto) 10.8 x10^3uL (1.8-7.7) Lymphocytes # (Auto) 1.1 x10^3/uL (1.0-4.8) Monocytes # (Auto) 0.4 x10^3/uL (0.0-1.1) Eosinophils # (Auto) 0.0 x10^3/uL (0.0-0.7) Basophils # (Auto) 0.0 x10^3/uL (0.0-0.2) Segmented Neutrophils % 86 % (35-66) Lymphocytes % 11 % (24-48) Monocytes % 3 % (0-10) Platelet Estimate Adequate (ADEQUATE) Sodium Level 136 mmol/L (136-145) Potassium Level 3.9 mmol/L (3.5-5.1) Chloride Level 99 mmol/L (98-107) Carbon Dioxide Level 25 mmol/L (21-32) Anion Gap 12 (6-14) Blood Urea Nitrogen 15 mg/dL (8-26) Creatinine 1.0 mg/dL (0.7-1.3) Estimated GFR (Cockcroft-Gault) 76.0 Glucose Level 223 mg/dL (70-99) Calcium Level 9.1 mg/dL (8.5-10.1) Test 09/16/17 08:18 Glucose (Fingerstick) 272 mg/dL (70-99) AZIZA CISNEROS MD Sep 16, 2017 10:09
--- NOTE | 2017-09-16 10:14 | PDOC ---
PULMONARY PROGRESS NOTES Subjective no soa Vitals Vital Signs Date Time Temp Pulse Resp B/P (MAP) Pulse Ox O2 Delivery O2 Flow Rate FiO2 09/16/17 08:22 Nasal Cannula 2.0 09/16/17 08:20 90 151/70 09/16/17 07:21 97.5 22 94 97.5 General: Alert, No acute distress Lungs: Other (clear) Cardiovascular: S1 Abdomen: Soft Neuro Exam: Alert Extremities: No Edema Skin: Warm Labs Laboratory Tests Test 09/15/17 03:38 09/15/17 07:25 09/15/17 11:21 09/15/17 16:23 White Blood Count 8.7 x10^3/uL (4.0-11.0) Red Blood Count 5.22 x10^6/uL (4.30-5.70) Hemoglobin 16.7 g/dL (13.0-17.5) Hematocrit 49.1 % (39.0-53.0) Mean Corpuscular Volume 94 fL (79-100) Mean Corpuscular Hemoglobin 32 pg (25-35) Mean Corpuscular Hemoglobin Concent 34 g/dL (31-37) Red Cell Distribution Width 13.4 % (11.5-14.5) Platelet Count 244 x10^3/uL (140-400) Neutrophils (%) (Auto) 56 % (31-73) Lymphocytes (%) (Auto) 19 % (24-48) Monocytes (%) (Auto) 8 % (0-9) Eosinophils (%) (Auto) 17 % (0-3) Basophils (%) (Auto) 1 % (0-3) Neutrophils # (Auto) 4.8 x10^3uL (1.8-7.7) Lymphocytes # (Auto) 1.6 x10^3/uL (1.0-4.8) Monocytes # (Auto) 0.7 x10^3/uL (0.0-1.1) Eosinophils # (Auto) 1.5 x10^3/uL (0.0-0.7) Basophils # (Auto) 0.0 x10^3/uL (0.0-0.2) Segmented Neutrophils % 66 % (35-66) Band Neutrophils % 3 % (0-9) Lymphocytes % 10 % (24-48) Monocytes % 4 % (0-10) Eosinophils % 17 % (0-5) Platelet Estimate Adequate (ADEQUATE) Sodium Level 139 mmol/L (136-145) Potassium Level 4.1 mmol/L (3.5-5.1) Chloride Level 102 mmol/L (98-107) Carbon Dioxide Level 26 mmol/L (21-32) Anion Gap 11 (6-14) Blood Urea Nitrogen 15 mg/dL (8-26) Creatinine 0.8 mg/dL (0.7-1.3) Estimated GFR (Cockcroft-Gault) 98.3 BUN/Creatinine Ratio 19 (6-20) Glucose Level 162 mg/dL (70-99) Calcium Level 9.0 mg/dL (8.5-10.1) Total Bilirubin 0.6 mg/dL (0.2-1.0) Aspartate Amino Transf (AST/SGOT) 31 U/L (15-37) Alanine Aminotransferase (ALT/SGPT) 51 U/L (16-63) Alkaline Phosphatase 70 U/L (46-116) Troponin I Quantitative < 0.017 ng/mL (0.000-0.055) SU-Xce-U-Type Natriuretic Peptide 57 pg/mL (0-124) Total Protein 7.5 g/dL (6.4-8.2) Albumin 3.6 g/dL (3.4-5.0) Albumin/Globulin Ratio 0.9 (1.0-1.7) Glucose (Fingerstick) 212 mg/dL (70-99) 304 mg/dL (70-99) 264 mg/dL (70-99) Test 09/15/17 21:20 09/16/17 03:45 09/16/17 08:18 Glucose (Fingerstick) 258 mg/dL (70-99) 272 mg/dL (70-99) White Blood Count 12.4 x10^3/uL (4.0-11.0) Red Blood Count 5.07 x10^6/uL (4.30-5.70) Hemoglobin 16.1 g/dL (13.0-17.5) Hematocrit 47.8 % (39.0-53.0) Mean Corpuscular Volume 94 fL (79-100) Mean Corpuscular Hemoglobin 32 pg (25-35) Mean Corpuscular Hemoglobin Concent 34 g/dL (31-37) Red Cell Distribution Width 13.5 % (11.5-14.5) Platelet Count 240 x10^3/uL (140-400) Neutrophils (%) (Auto) 88 % (31-73) Lymphocytes (%) (Auto) 9 % (24-48) Monocytes (%) (Auto) 3 % (0-9) Eosinophils (%) (Auto) 0 % (0-3) Basophils (%) (Auto) 0 % (0-3) Neutrophils # (Auto) 10.8 x10^3uL (1.8-7.7) Lymphocytes # (Auto) 1.1 x10^3/uL (1.0-4.8) Monocytes # (Auto) 0.4 x10^3/uL (0.0-1.1) Eosinophils # (Auto) 0.0 x10^3/uL (0.0-0.7) Basophils # (Auto) 0.0 x10^3/uL (0.0-0.2) Segmented Neutrophils % 86 % (35-66) Lymphocytes % 11 % (24-48) Monocytes % 3 % (0-10) Platelet Estimate Adequate (ADEQUATE) Sodium Level 136 mmol/L (136-145) Potassium Level 3.9 mmol/L (3.5-5.1) Chloride Level 99 mmol/L (98-107) Carbon Dioxide Level 25 mmol/L (21-32) Anion Gap 12 (6-14) Blood Urea Nitrogen 15 mg/dL (8-26) Creatinine 1.0 mg/dL (0.7-1.3) Estimated GFR (Cockcroft-Gault) 76.0 Glucose Level 223 mg/dL (70-99) Calcium Level 9.1 mg/dL (8.5-10.1) Laboratory Tests Test 09/15/17 11:21 09/15/17 16:23 09/15/17 21:20 09/16/17 03:45 Glucose (Fingerstick) 304 mg/dL (70-99) 264 mg/dL (70-99) 258 mg/dL (70-99) White Blood Count 12.4 x10^3/uL (4.0-11.0) Red Blood Count 5.07 x10^6/uL (4.30-5.70) Hemoglobin 16.1 g/dL (13.0-17.5) Hematocrit 47.8 % (39.0-53.0) Mean Corpuscular Volume 94 fL (79-100) Mean Corpuscular Hemoglobin 32 pg (25-35) Mean Corpuscular Hemoglobin Concent 34 g/dL (31-37) Red Cell Distribution Width 13.5 % (11.5-14.5) Platelet Count 240 x10^3/uL (140-400) Neutrophils (%) (Auto) 88 % (31-73) Lymphocytes (%) (Auto) 9 % (24-48) Monocytes (%) (Auto) 3 % (0-9) Eosinophils (%) (Auto) 0 % (0-3) Basophils (%) (Auto) 0 % (0-3) Neutrophils # (Auto) 10.8 x10^3uL (1.8-7.7) Lymphocytes # (Auto) 1.1 x10^3/uL (1.0-4.8) Monocytes # (Auto) 0.4 x10^3/uL (0.0-1.1) Eosinophils # (Auto) 0.0 x10^3/uL (0.0-0.7) Basophils # (Auto) 0.0 x10^3/uL (0.0-0.2) Segmented Neutrophils % 86 % (35-66) Lymphocytes % 11 % (24-48) Monocytes % 3 % (0-10) Platelet Estimate Adequate (ADEQUATE) Sodium Level 136 mmol/L (136-145) Potassium Level 3.9 mmol/L (3.5-5.1) Chloride Level 99 mmol/L (98-107) Carbon Dioxide Level 25 mmol/L (21-32) Anion Gap 12 (6-14) Blood Urea Nitrogen 15 mg/dL (8-26) Creatinine 1.0 mg/dL (0.7-1.3) Estimated GFR (Cockcroft-Gault) 76.0 Glucose Level 223 mg/dL (70-99) Calcium Level 9.1 mg/dL (8.5-10.1) Test 09/16/17 08:18 Glucose (Fingerstick) 272 mg/dL (70-99) Medications Active Scripts Medications Dose Route/Sig Max Daily Dose Days Date Category Benzonatate 100 Mg Capsule 100 Mg PO [id number] 09/03/17 Rx Prednisone 20 Mg Tablet 40 Mg PO DAILY 2 09/03/17 Rx Glucophage (Metformin Hcl) 500 Mg Tablet 500 Mg PO BIDWMEALS 30 09/03/17 Rx Doxycycline Hyclate 100 Mg Tablet 100 Mg PO BID 3 09/03/17 Rx Proair Hfa Inhaler (Albuterol Sulfate) 8.5 Gm Hfa.aer.ad 2 Puff INH PRN Q6HRS PRN 07/25/17 Rx Albuterol Sulfate Neb Soln (Albuterol Sulfate) 2.5 Mg/3 Ml Vial.neb 1 Vial NEB PRN Q4HRS 07/25/17 Rx Aspirin Ec (Aspirin) 81 Mg Tablet.dr 81 Mg PO DAILYWBKFT 30 03/21/17 Rx Effient (Prasugrel Hcl) 10 Mg Tablet 10 Mg PO DAILYWBKFT 30 03/21/17 Rx Hydrochlorothiazide Capsule (Hydrochlorothiazide) 12.5 Mg Capsule 12.5 Mg PO DAILY 30 03/21/17 Rx Lisinopril 20 Mg Tablet 20 Mg PO DAILY 30 03/21/17 Rx Atorvastatin Calcium 40 Mg Tablet 40 Mg PO QHS 30 03/21/17 Rx Proair Hfa Inhaler (Albuterol Sulfate) 8.5 Gm Hfa.aer.ad 1 Puff INH PRN Q6HRS PRN 03/21/17 Rx Impression . 1. Dyspnea with acute hypoxic respiratory failure secondary to acute asthma exacerbation. 2. No definite pneumonia seen. Plan . 1. I have discussed with the patient regarding the importance of using steroid inhaler as an outpatient to have a better control of his asthma. He understands that. We will write a prescription for Flovent at the time of discharge. 2. In the meantime, continue DuoNeb and add Pulmicort and add steroid IV. 3. Wean off oxygen. 4. We will need a 6-minute walk test at the time of discharge. ok with dc today CASPER GIVENS MD Sep 16, 2017 10:14
[2017-09-16 11:00] VITALS: BP 130/81
[2017-09-16] MEDS ORDERED: IPRATRPIUM/ALBUTEROL 0.5/2.5MG 3 ML NEBU. ONE (14:50)
[2017-09-16 14:51] VITALS: BP 122/75
[2017-09-16 19:00] VITALS: BP 118/70
[2017-09-16] MEDS: ATORVASTATIN CALCIUM 40 MG TABLET. PO SCH (19:52)
[2017-09-16 23:00] VITALS: BP 116/67
[2017-09-17 03:00] VITALS: BP 117/73
[2017-09-17 05:02] LABS: BASO % 0 % (0-3); EOS % 0 % (0-3); HEMATOCRIT 46.9 % (39.0-53.0); HEMOGLOBIN 15.5 g/dL (13.0-17.5); LYMPH # 1.1 x10^3/uL (1.0-4.8); LYMPH % 6 % (24-48); MEAN CORPUSCULAR HEMOGLOBIN 31 pg (25-35); MEAN CORPUSCULAR HGB CONC 33 g/dL (31-37); MEAN CORPUSCULAR VOLUME 95 fL (79-100); MONO % 5 % (0-9); NEUT % 88 % (31-73); PLATELET COUNT 226 x10^3/uL (140-400); RED BLOOD COUNT 4.95 x10^6/uL (4.30-5.70); RED CELL DISTRIBUTION WIDTH 13.8 % (11.5-14.5); WHITE BLOOD COUNT 17.9 x10^3/uL (4.0-11.0)
[2017-09-17] MEDS: methylPREDNISolone SOD SUCC PF 40 MG/ML VIAL. IV SCH (05:56)
[2017-09-17] MEDS: IPRATRPIUM/ALBUTEROL 0.5/2.5MG 3 ML NEBU. NEB SCH ×4 (06:05→20:47)
[2017-09-17] MEDS: BUDESONIDE 0.5 MG/2 ML NEBU. NEB SCH ×2 (06:05→20:47)
[2017-09-17 06:11] LABS: CALCIUM 9.3 mg/dL (8.5-10.1); CREATININE 0.9 mg/dL (0.7-1.3); GFR 85.8; POTASSIUM 4.2 mmol/L (3.5-5.1)
[2017-09-17 07:00] VITALS: BP 143/119
[2017-09-17] MEDS: LISINOPRIL 20 MG TABLET PO SCH (08:38)
[2017-09-17] MEDS: metFORMIN 500 MG TABLET PO SCH ×2 (08:39→17:36)
[2017-09-17] MEDS: PRASUGREL 10 MG TABLET. PO SCH (08:39)
[2017-09-17] MEDS: ASPIRIN ENTERIC COATED 81 MG TABLET.DR. PO SCH (08:39)
[2017-09-17 11:13] VITALS: BP 114/74
--- NOTE | 2017-09-17 12:29 | PDOC ---
PULMONARY PROGRESS NOTES Subjective no soa Vitals Vital Signs Date Time Temp Pulse Resp B/P (MAP) Pulse Ox O2 Delivery O2 Flow Rate FiO2 09/17/17 12:11 94 Room Air 09/17/17 11:13 96.4 92 22 114/74 (87) 3.0 96.4 General: Alert, No acute distress Lungs: Clear Cardiovascular: S1 Abdomen: Soft Neuro Exam: Alert Extremities: No Edema Skin: Warm Labs Laboratory Tests Test 09/15/17 16:23 09/15/17 21:20 09/16/17 03:45 09/16/17 08:18 Glucose (Fingerstick) 264 mg/dL (70-99) 258 mg/dL (70-99) 272 mg/dL (70-99) White Blood Count 12.4 x10^3/uL (4.0-11.0) Red Blood Count 5.07 x10^6/uL (4.30-5.70) Hemoglobin 16.1 g/dL (13.0-17.5) Hematocrit 47.8 % (39.0-53.0) Mean Corpuscular Volume 94 fL (79-100) Mean Corpuscular Hemoglobin 32 pg (25-35) Mean Corpuscular Hemoglobin Concent 34 g/dL (31-37) Red Cell Distribution Width 13.5 % (11.5-14.5) Platelet Count 240 x10^3/uL (140-400) Neutrophils (%) (Auto) 88 % (31-73) Lymphocytes (%) (Auto) 9 % (24-48) Monocytes (%) (Auto) 3 % (0-9) Eosinophils (%) (Auto) 0 % (0-3) Basophils (%) (Auto) 0 % (0-3) Neutrophils # (Auto) 10.8 x10^3uL (1.8-7.7) Lymphocytes # (Auto) 1.1 x10^3/uL (1.0-4.8) Monocytes # (Auto) 0.4 x10^3/uL (0.0-1.1) Eosinophils # (Auto) 0.0 x10^3/uL (0.0-0.7) Basophils # (Auto) 0.0 x10^3/uL (0.0-0.2) Segmented Neutrophils % 86 % (35-66) Lymphocytes % 11 % (24-48) Monocytes % 3 % (0-10) Platelet Estimate Adequate (ADEQUATE) Sodium Level 136 mmol/L (136-145) Potassium Level 3.9 mmol/L (3.5-5.1) Chloride Level 99 mmol/L (98-107) Carbon Dioxide Level 25 mmol/L (21-32) Anion Gap 12 (6-14) Blood Urea Nitrogen 15 mg/dL (8-26) Creatinine 1.0 mg/dL (0.7-1.3) Estimated GFR (Cockcroft-Gault) 76.0 Glucose Level 223 mg/dL (70-99) Calcium Level 9.1 mg/dL (8.5-10.1) Test 09/16/17 11:36 09/16/17 16:19 09/17/17 03:50 09/17/17 07:21 Glucose (Fingerstick) 263 mg/dL (70-99) 364 mg/dL (70-99) 214 mg/dL (70-99) White Blood Count 17.9 x10^3/uL (4.0-11.0) Red Blood Count 4.95 x10^6/uL (4.30-5.70) Hemoglobin 15.5 g/dL (13.0-17.5) Hematocrit 46.9 % (39.0-53.0) Mean Corpuscular Volume 95 fL (79-100) Mean Corpuscular Hemoglobin 31 pg (25-35) Mean Corpuscular Hemoglobin Concent 33 g/dL (31-37) Red Cell Distribution Width 13.8 % (11.5-14.5) Platelet Count 226 x10^3/uL (140-400) Neutrophils (%) (Auto) 88 % (31-73) Lymphocytes (%) (Auto) 6 % (24-48) Monocytes (%) (Auto) 5 % (0-9) Eosinophils (%) (Auto) 0 % (0-3) Basophils (%) (Auto) 0 % (0-3) Neutrophils # (Auto) 15.8 x10^3uL (1.8-7.7) Lymphocytes # (Auto) 1.1 x10^3/uL (1.0-4.8) Monocytes # (Auto) 1.0 x10^3/uL (0.0-1.1) Eosinophils # (Auto) 0.0 x10^3/uL (0.0-0.7) Basophils # (Auto) 0.0 x10^3/uL (0.0-0.2) Sodium Level 136 mmol/L (136-145) Potassium Level 4.2 mmol/L (3.5-5.1) Chloride Level 99 mmol/L (98-107) Carbon Dioxide Level 27 mmol/L (21-32) Anion Gap 10 (6-14) Blood Urea Nitrogen 20 mg/dL (8-26) Creatinine 0.9 mg/dL (0.7-1.3) Estimated GFR (Cockcroft-Gault) 85.8 Glucose Level 217 mg/dL (70-99) Calcium Level 9.3 mg/dL (8.5-10.1) Test 09/17/17 11:26 Glucose (Fingerstick) 367 mg/dL (70-99) Laboratory Tests Test 09/16/17 16:19 09/17/17 03:50 09/17/17 07:21 09/17/17 11:26 Glucose (Fingerstick) 364 mg/dL (70-99) 214 mg/dL (70-99) 367 mg/dL (70-99) White Blood Count 17.9 x10^3/uL (4.0-11.0) Red Blood Count 4.95 x10^6/uL (4.30-5.70) Hemoglobin 15.5 g/dL (13.0-17.5) Hematocrit 46.9 % (39.0-53.0) Mean Corpuscular Volume 95 fL (79-100) Mean Corpuscular Hemoglobin 31 pg (25-35) Mean Corpuscular Hemoglobin Concent 33 g/dL (31-37) Red Cell Distribution Width 13.8 % (11.5-14.5) Platelet Count 226 x10^3/uL (140-400) Neutrophils (%) (Auto) 88 % (31-73) Lymphocytes (%) (Auto) 6 % (24-48) Monocytes (%) (Auto) 5 % (0-9) Eosinophils (%) (Auto) 0 % (0-3) Basophils (%) (Auto) 0 % (0-3) Neutrophils # (Auto) 15.8 x10^3uL (1.8-7.7) Lymphocytes # (Auto) 1.1 x10^3/uL (1.0-4.8) Monocytes # (Auto) 1.0 x10^3/uL (0.0-1.1) Eosinophils # (Auto) 0.0 x10^3/uL (0.0-0.7) Basophils # (Auto) 0.0 x10^3/uL (0.0-0.2) Sodium Level 136 mmol/L (136-145) Potassium Level 4.2 mmol/L (3.5-5.1) Chloride Level 99 mmol/L (98-107) Carbon Dioxide Level 27 mmol/L (21-32) Anion Gap 10 (6-14) Blood Urea Nitrogen 20 mg/dL (8-26) Creatinine 0.9 mg/dL (0.7-1.3) Estimated GFR (Cockcroft-Gault) 85.8 Glucose Level 217 mg/dL (70-99) Calcium Level 9.3 mg/dL (8.5-10.1) Medications Active Scripts Medications Dose Route/Sig Max Daily Dose Days Date Category Benzonatate 100 Mg Capsule 100 Mg PO [id number] 09/03/17 Rx Prednisone 20 Mg Tablet 40 Mg PO DAILY 2 09/03/17 Rx Glucophage (Metformin Hcl) 500 Mg Tablet 500 Mg PO BIDWMEALS 30 09/03/17 Rx Doxycycline Hyclate 100 Mg Tablet 100 Mg PO BID 3 09/03/17 Rx Proair Hfa Inhaler (Albuterol Sulfate) 8.5 Gm Hfa.aer.ad 2 Puff INH PRN Q6HRS PRN 07/25/17 Rx Albuterol Sulfate Neb Soln (Albuterol Sulfate) 2.5 Mg/3 Ml Vial.neb 1 Vial NEB PRN Q4HRS 07/25/17 Rx Aspirin Ec (Aspirin) 81 Mg Tablet.dr 81 Mg PO DAILYWBKFT 30 03/21/17 Rx Effient (Prasugrel Hcl) 10 Mg Tablet 10 Mg PO DAILYWBKFT 30 03/21/17 Rx Hydrochlorothiazide Capsule (Hydrochlorothiazide) 12.5 Mg Capsule 12.5 Mg PO DAILY 30 03/21/17 Rx Lisinopril 20 Mg Tablet 20 Mg PO DAILY 30 03/21/17 Rx Atorvastatin Calcium 40 Mg Tablet 40 Mg PO QHS 30 03/21/17 Rx Proair Hfa Inhaler (Albuterol Sulfate) 8.5 Gm Hfa.aer.ad 1 Puff INH PRN Q6HRS PRN 03/21/17 Rx Impression . 1. Dyspnea with acute hypoxic respiratory failure secondary to acute asthma exacerbation. 2. No definite pneumonia seen. Plan . 1. I have discussed with the patient regarding the importance of using steroid inhaler as an outpatient to have a better control of his asthma. He understands that. We will write a prescription for Flovent at the time of discharge. 2. In the meantime, continue DuoNeb and add Pulmicort . TAPER steroid 3. Wean off oxygen. 4. We will need a 6-minute walk test at the time of discharge. ok with CASPER Linares MD Sep 17, 2017 12:29
--- NOTE | 2017-09-17 14:25 | PDOC ---
PROGRESS NOTES Chief Complaint Chief Complaint Acute hypoxic respir failure ASSESSMENT AND PLAN: 1. Asthma exacerbation: slowly improving. on steroids, switch to PO in AM. cont nebs suppl O2. add mucinex for cough 2. Leukocytosis: worsening reactive, suspected bronchitis, steroids. monitor 3. CAD: no acute issues. cont 2ary prevention meds 3. HTN: well controlled 4. DM: on metformin; poor control with steroids; cont ISS History of Present Illness History of Present Illness more cough, s.t productive, burning in mid chest Vitals Vitals Vital Signs Date Time Temp Pulse Resp B/P (MAP) Pulse Ox O2 Delivery O2 Flow Rate FiO2 09/17/17 12:11 94 Room Air 09/17/17 11:13 96.4 92 22 114/74 (87) 3.0 96.4 Physical Exam General: Alert, Oriented X3, Cooperative, No acute distress Heart: Regular rate Lungs: Clear Abdomen: Normal bowel sounds, Soft, No tenderness Extremities: No edema Skin: No rashes Labs LABS Laboratory Tests Test 09/16/17 16:19 09/17/17 03:50 09/17/17 07:21 09/17/17 11:26 Glucose (Fingerstick) 364 mg/dL (70-99) 214 mg/dL (70-99) 367 mg/dL (70-99) White Blood Count 17.9 x10^3/uL (4.0-11.0) Red Blood Count 4.95 x10^6/uL (4.30-5.70) Hemoglobin 15.5 g/dL (13.0-17.5) Hematocrit 46.9 % (39.0-53.0) Mean Corpuscular Volume 95 fL (79-100) Mean Corpuscular Hemoglobin 31 pg (25-35) Mean Corpuscular Hemoglobin Concent 33 g/dL (31-37) Red Cell Distribution Width 13.8 % (11.5-14.5) Platelet Count 226 x10^3/uL (140-400) Neutrophils (%) (Auto) 88 % (31-73) Lymphocytes (%) (Auto) 6 % (24-48) Monocytes (%) (Auto) 5 % (0-9) Eosinophils (%) (Auto) 0 % (0-3) Basophils (%) (Auto) 0 % (0-3) Neutrophils # (Auto) 15.8 x10^3uL (1.8-7.7) Lymphocytes # (Auto) 1.1 x10^3/uL (1.0-4.8) Monocytes # (Auto) 1.0 x10^3/uL (0.0-1.1) Eosinophils # (Auto) 0.0 x10^3/uL (0.0-0.7) Basophils # (Auto) 0.0 x10^3/uL (0.0-0.2) Sodium Level 136 mmol/L (136-145) Potassium Level 4.2 mmol/L (3.5-5.1) Chloride Level 99 mmol/L (98-107) Carbon Dioxide Level 27 mmol/L (21-32) Anion Gap 10 (6-14) Blood Urea Nitrogen 20 mg/dL (8-26) Creatinine 0.9 mg/dL (0.7-1.3) Estimated GFR (Cockcroft-Gault) 85.8 Glucose Level 217 mg/dL (70-99) Calcium Level 9.3 mg/dL (8.5-10.1) AZIZA CISNEROS MD Sep 17, 2017 14:25
[2017-09-17] MEDS: predniSONE 20 MG TABLET PO SCH (14:33)
[2017-09-17] MEDS ORDERED: LIDO:MAALOX:DONNATAL 1:1:1 15 ML SINGLE DOSE SWSW ONE (14:45)
[2017-09-17 14:58] VITALS: BP 134/61
[2017-09-17 19:47] VITALS: BP 113/65
[2017-09-17] MEDS: guaiFENesin DM 600/30MG 1 TAB TAB.ER.12H PO SCH (20:57)
[2017-09-17] MEDS: ATORVASTATIN CALCIUM 40 MG TABLET. PO SCH (20:57)
[2017-09-17] MEDS ORDERED: methylPREDNISolone SOD SUCC PF 40 MG/ML VIAL. IV SCH (21:00)
[2017-09-17 23:30] VITALS: BP 118/67
[2017-09-18 03:00] VITALS: BP 114/63
[2017-09-18 05:21] LABS: BASO % 0 % (0-3); EOS % 0 % (0-3); HEMATOCRIT 47.6 % (39.0-53.0); HEMOGLOBIN 15.6 g/dL (13.0-17.5); LYMPH # 2.2 x10^3/uL (1.0-4.8); LYMPH % 15 % (24-48); MEAN CORPUSCULAR HEMOGLOBIN 31 pg (25-35); MEAN CORPUSCULAR HGB CONC 33 g/dL (31-37); MEAN CORPUSCULAR VOLUME 95 fL (79-100); MONO % 9 % (0-9); NEUT % 76 % (31-73); PLATELET COUNT 240 x10^3/uL (140-400); RED CELL DISTRIBUTION WIDTH 13.6 % (11.5-14.5); WHITE BLOOD COUNT 14.6 x10^3/uL (4.0-11.0)
[2017-09-18 05:37] LABS: CALCIUM 8.9 mg/dL (8.5-10.1); CREATININE 0.8 mg/dL (0.7-1.3); GFR 98.3
[2017-09-18] MEDS: BUDESONIDE 0.5 MG/2 ML NEBU. NEB SCH ×2 (07:04→20:29)
[2017-09-18 07:05] VITALS: BP 128/96
[2017-09-18] MEDS: IPRATRPIUM/ALBUTEROL 0.5/2.5MG 3 ML NEBU. NEB SCH ×4 (07:05→20:29)
[2017-09-18] MEDS: guaiFENesin DM 600/30MG 1 TAB TAB.ER.12H PO SCH ×2 (08:55→20:40)
[2017-09-18] MEDS: ASPIRIN ENTERIC COATED 81 MG TABLET.DR. PO SCH (08:55)
[2017-09-18] MEDS: metFORMIN 500 MG TABLET PO SCH ×2 (08:56→17:00)
[2017-09-18] MEDS: PRASUGREL 10 MG TABLET. PO SCH (08:56)
[2017-09-18] MEDS: predniSONE 20 MG TABLET PO SCH (08:56)
[2017-09-18] MEDS: LISINOPRIL 20 MG TABLET PO SCH (08:56)
[2017-09-18 10:30] VITALS: BP 121/84
[2017-09-18 14:39] VITALS: BP 121/82
--- NOTE | 2017-09-18 16:37 | PDOC ---
PROGRESS NOTES Chief Complaint Chief Complaint Acute hypoxic respir failure ASSESSMENT AND PLAN: 1. Asthma exacerbation: slowly improving. on steroids PO; cont nebs suppl O2 , mucinex for cough 2. Leukocytosis: improving. reactive 2/2 suspected bronchitis, steroids. monitor 3. CAD: no acute issues. cont 2ary prevention meds 4. HTN: well controlled 5. DM: on metformin; poor control with steroids; cont ISS for now 6. Dispo: anticipate home in AM History of Present Illness History of Present Illness breathing better, still difficulties raising sputum, but rattling in chest at times Vitals Vitals Vital Signs Date Time Temp Pulse Resp B/P (MAP) Pulse Ox O2 Delivery O2 Flow Rate FiO2 09/18/17 16:29 93 Room Air 09/18/17 14:39 98.9 88 20 121/82 (95) 98.9 09/18/17 10:30 1.0 Physical Exam General: Alert, Oriented X3, Cooperative, No acute distress Heart: Regular rate Lungs: Clear Abdomen: Normal bowel sounds, Soft, No tenderness Extremities: No edema Skin: No rashes Labs LABS Laboratory Tests Test 09/17/17 16:53 09/18/17 04:20 09/18/17 07:18 09/18/17 11:35 Glucose (Fingerstick) 204 mg/dL (70-99) 175 mg/dL (70-99) 246 mg/dL (70-99) White Blood Count 14.6 x10^3/uL (4.0-11.0) Red Blood Count 5.00 x10^6/uL (4.30-5.70) Hemoglobin 15.6 g/dL (13.0-17.5) Hematocrit 47.6 % (39.0-53.0) Mean Corpuscular Volume 95 fL (79-100) Mean Corpuscular Hemoglobin 31 pg (25-35) Mean Corpuscular Hemoglobin Concent 33 g/dL (31-37) Red Cell Distribution Width 13.6 % (11.5-14.5) Platelet Count 240 x10^3/uL (140-400) Neutrophils (%) (Auto) 76 % (31-73) Lymphocytes (%) (Auto) 15 % (24-48) Monocytes (%) (Auto) 9 % (0-9) Eosinophils (%) (Auto) 0 % (0-3) Basophils (%) (Auto) 0 % (0-3) Neutrophils # (Auto) 11.1 x10^3uL (1.8-7.7) Lymphocytes # (Auto) 2.2 x10^3/uL (1.0-4.8) Monocytes # (Auto) 1.3 x10^3/uL (0.0-1.1) Eosinophils # (Auto) 0.1 x10^3/uL (0.0-0.7) Basophils # (Auto) 0.0 x10^3/uL (0.0-0.2) Sodium Level 137 mmol/L (136-145) Potassium Level 4.0 mmol/L (3.5-5.1) Chloride Level 99 mmol/L (98-107) Carbon Dioxide Level 30 mmol/L (21-32) Anion Gap 8 (6-14) Blood Urea Nitrogen 19 mg/dL (8-26) Creatinine 0.8 mg/dL (0.7-1.3) Estimated GFR (Cockcroft-Gault) 98.3 Glucose Level 206 mg/dL (70-99) Calcium Level 8.9 mg/dL (8.5-10.1) Test 09/18/17 16:12 Glucose (Fingerstick) 274 mg/dL (70-99) AZIZA CISNEROS MD Sep 18, 2017 16:37
--- NOTE | 2017-09-18 19:08 | PDOC ---
PULMONARY PROGRESS NOTES Subjective PT FEELS BETTER LESS SOA Vitals Vital Signs Date Time Temp Pulse Resp B/P (MAP) Pulse Ox O2 Delivery O2 Flow Rate FiO2 09/18/17 16:29 93 Room Air 09/18/17 14:39 98.9 88 20 121/82 (95) 98.9 09/18/17 10:30 1.0 General: Alert, No acute distress Lungs: Clear Cardiovascular: S1 Abdomen: Soft Neuro Exam: Alert Extremities: No Edema Skin: Warm Labs Laboratory Tests Test 09/17/17 03:50 09/17/17 07:21 09/17/17 11:26 09/17/17 16:53 White Blood Count 17.9 x10^3/uL (4.0-11.0) Red Blood Count 4.95 x10^6/uL (4.30-5.70) Hemoglobin 15.5 g/dL (13.0-17.5) Hematocrit 46.9 % (39.0-53.0) Mean Corpuscular Volume 95 fL (79-100) Mean Corpuscular Hemoglobin 31 pg (25-35) Mean Corpuscular Hemoglobin Concent 33 g/dL (31-37) Red Cell Distribution Width 13.8 % (11.5-14.5) Platelet Count 226 x10^3/uL (140-400) Neutrophils (%) (Auto) 88 % (31-73) Lymphocytes (%) (Auto) 6 % (24-48) Monocytes (%) (Auto) 5 % (0-9) Eosinophils (%) (Auto) 0 % (0-3) Basophils (%) (Auto) 0 % (0-3) Neutrophils # (Auto) 15.8 x10^3uL (1.8-7.7) Lymphocytes # (Auto) 1.1 x10^3/uL (1.0-4.8) Monocytes # (Auto) 1.0 x10^3/uL (0.0-1.1) Eosinophils # (Auto) 0.0 x10^3/uL (0.0-0.7) Basophils # (Auto) 0.0 x10^3/uL (0.0-0.2) Sodium Level 136 mmol/L (136-145) Potassium Level 4.2 mmol/L (3.5-5.1) Chloride Level 99 mmol/L (98-107) Carbon Dioxide Level 27 mmol/L (21-32) Anion Gap 10 (6-14) Blood Urea Nitrogen 20 mg/dL (8-26) Creatinine 0.9 mg/dL (0.7-1.3) Estimated GFR (Cockcroft-Gault) 85.8 Glucose Level 217 mg/dL (70-99) Calcium Level 9.3 mg/dL (8.5-10.1) Glucose (Fingerstick) 214 mg/dL (70-99) 367 mg/dL (70-99) 204 mg/dL (70-99) Test 09/18/17 04:20 09/18/17 07:18 09/18/17 11:35 09/18/17 16:12 White Blood Count 14.6 x10^3/uL (4.0-11.0) Red Blood Count 5.00 x10^6/uL (4.30-5.70) Hemoglobin 15.6 g/dL (13.0-17.5) Hematocrit 47.6 % (39.0-53.0) Mean Corpuscular Volume 95 fL (79-100) Mean Corpuscular Hemoglobin 31 pg (25-35) Mean Corpuscular Hemoglobin Concent 33 g/dL (31-37) Red Cell Distribution Width 13.6 % (11.5-14.5) Platelet Count 240 x10^3/uL (140-400) Neutrophils (%) (Auto) 76 % (31-73) Lymphocytes (%) (Auto) 15 % (24-48) Monocytes (%) (Auto) 9 % (0-9) Eosinophils (%) (Auto) 0 % (0-3) Basophils (%) (Auto) 0 % (0-3) Neutrophils # (Auto) 11.1 x10^3uL (1.8-7.7) Lymphocytes # (Auto) 2.2 x10^3/uL (1.0-4.8) Monocytes # (Auto) 1.3 x10^3/uL (0.0-1.1) Eosinophils # (Auto) 0.1 x10^3/uL (0.0-0.7) Basophils # (Auto) 0.0 x10^3/uL (0.0-0.2) Sodium Level 137 mmol/L (136-145) Potassium Level 4.0 mmol/L (3.5-5.1) Chloride Level 99 mmol/L (98-107) Carbon Dioxide Level 30 mmol/L (21-32) Anion Gap 8 (6-14) Blood Urea Nitrogen 19 mg/dL (8-26) Creatinine 0.8 mg/dL (0.7-1.3) Estimated GFR (Cockcroft-Gault) 98.3 Glucose Level 206 mg/dL (70-99) Calcium Level 8.9 mg/dL (8.5-10.1) Glucose (Fingerstick) 175 mg/dL (70-99) 246 mg/dL (70-99) 274 mg/dL (70-99) Laboratory Tests Test 09/18/17 04:20 09/18/17 07:18 09/18/17 11:35 09/18/17 16:12 White Blood Count 14.6 x10^3/uL (4.0-11.0) Red Blood Count 5.00 x10^6/uL (4.30-5.70) Hemoglobin 15.6 g/dL (13.0-17.5) Hematocrit 47.6 % (39.0-53.0) Mean Corpuscular Volume 95 fL (79-100) Mean Corpuscular Hemoglobin 31 pg (25-35) Mean Corpuscular Hemoglobin Concent 33 g/dL (31-37) Red Cell Distribution Width 13.6 % (11.5-14.5) Platelet Count 240 x10^3/uL (140-400) Neutrophils (%) (Auto) 76 % (31-73) Lymphocytes (%) (Auto) 15 % (24-48) Monocytes (%) (Auto) 9 % (0-9) Eosinophils (%) (Auto) 0 % (0-3) Basophils (%) (Auto) 0 % (0-3) Neutrophils # (Auto) 11.1 x10^3uL (1.8-7.7) Lymphocytes # (Auto) 2.2 x10^3/uL (1.0-4.8) Monocytes # (Auto) 1.3 x10^3/uL (0.0-1.1) Eosinophils # (Auto) 0.1 x10^3/uL (0.0-0.7) Basophils # (Auto) 0.0 x10^3/uL (0.0-0.2) Sodium Level 137 mmol/L (136-145) Potassium Level 4.0 mmol/L (3.5-5.1) Chloride Level 99 mmol/L (98-107) Carbon Dioxide Level 30 mmol/L (21-32) Anion Gap 8 (6-14) Blood Urea Nitrogen 19 mg/dL (8-26) Creatinine 0.8 mg/dL (0.7-1.3) Estimated GFR (Cockcroft-Gault) 98.3 Glucose Level 206 mg/dL (70-99) Calcium Level 8.9 mg/dL (8.5-10.1) Glucose (Fingerstick) 175 mg/dL (70-99) 246 mg/dL (70-99) 274 mg/dL (70-99) Medications Active Scripts Medications Dose Route/Sig Max Daily Dose Days Date Category Benzonatate 100 Mg Capsule 100 Mg PO [id number] 09/03/17 Rx Prednisone 20 Mg Tablet 40 Mg PO DAILY 2 09/03/17 Rx Glucophage (Metformin Hcl) 500 Mg Tablet 500 Mg PO BIDWMEALS 30 09/03/17 Rx Doxycycline Hyclate 100 Mg Tablet 100 Mg PO BID 3 09/03/17 Rx Proair Hfa Inhaler (Albuterol Sulfate) 8.5 Gm Hfa.aer.ad 2 Puff INH PRN Q6HRS PRN 07/25/17 Rx Albuterol Sulfate Neb Soln (Albuterol Sulfate) 2.5 Mg/3 Ml Vial.neb 1 Vial NEB PRN Q4HRS 07/25/17 Rx Aspirin Ec (Aspirin) 81 Mg Tablet.dr 81 Mg PO DAILYWBKFT 30 03/21/17 Rx Effient (Prasugrel Hcl) 10 Mg Tablet 10 Mg PO DAILYWBKFT 30 03/21/17 Rx Hydrochlorothiazide Capsule (Hydrochlorothiazide) 12.5 Mg Capsule 12.5 Mg PO DAILY 30 03/21/17 Rx Lisinopril 20 Mg Tablet 20 Mg PO DAILY 30 03/21/17 Rx Atorvastatin Calcium 40 Mg Tablet 40 Mg PO QHS 30 03/21/17 Rx Proair Hfa Inhaler (Albuterol Sulfate) 8.5 Gm Hfa.aer.ad 1 Puff INH PRN Q6HRS PRN 03/21/17 Rx Impression . 1. Dyspnea with acute hypoxic respiratory failure secondary to acute asthma exacerbation. 2. No definite pneumonia seen. Plan . OK TO D/C IN AM FLOVENT RX IN AM 6 MIN WALK RADHA ANDREWS MD Sep 18, 2017 19:08
[2017-09-18 19:51] VITALS: BP 135/77
[2017-09-18] MEDS: ATORVASTATIN CALCIUM 40 MG TABLET. PO SCH (20:40)
[2017-09-18 23:30] VITALS: BP 125/81
[2017-09-19 03:50] VITALS: BP 144/104
[2017-09-19 04:19] LABS: BASO % 0 % (0-3); EOS % 5 % (0-3); HEMATOCRIT 48.9 % (39.0-53.0); HEMOGLOBIN 16.2 g/dL (13.0-17.5); LYMPH # 2.7 x10^3/uL (1.0-4.8); LYMPH % 20 % (24-48); MEAN CORPUSCULAR HEMOGLOBIN 32 pg (25-35); MEAN CORPUSCULAR HGB CONC 33 g/dL (31-37); MEAN CORPUSCULAR VOLUME 95 fL (79-100); MONO % 10 % (0-9); NEUT % 65 % (31-73); PLATELET COUNT 250 x10^3/uL (140-400); RED BLOOD COUNT 5.13 x10^6/uL (4.30-5.70); RED CELL DISTRIBUTION WIDTH 13.4 % (11.5-14.5); WHITE BLOOD COUNT 13.4 x10^3/uL (4.0-11.0)
[2017-09-19 04:49] LABS: CALCIUM 9.1 mg/dL (8.5-10.1); CREATININE 0.8 mg/dL (0.7-1.3); GFR 98.3; POTASSIUM 3.5 mmol/L (3.5-5.1)
[2017-09-19 07:00] VITALS: BP 145/106
[2017-09-19] MEDS: BUDESONIDE 0.5 MG/2 ML NEBU. NEB SCH ×2 (07:38→20:29)
[2017-09-19] MEDS: IPRATRPIUM/ALBUTEROL 0.5/2.5MG 3 ML NEBU. NEB SCH ×4 (07:38→20:29)
[2017-09-19] MEDS: guaiFENesin DM 600/30MG 1 TAB TAB.ER.12H PO SCH ×2 (08:31→21:17)
[2017-09-19] MEDS: ASPIRIN ENTERIC COATED 81 MG TABLET.DR. PO SCH (08:31)
[2017-09-19] MEDS: metFORMIN 500 MG TABLET PO SCH ×2 (08:31→16:40)
[2017-09-19] MEDS: PRASUGREL 10 MG TABLET. PO SCH (08:32)
[2017-09-19] MEDS: LISINOPRIL 20 MG TABLET PO SCH (08:32)
[2017-09-19] MEDS: predniSONE 20 MG TABLET PO SCH (08:32)
[2017-09-19 11:00] VITALS: BP 165/103
--- NOTE | 2017-09-19 11:45 | PDOC ---
PULMONARY PROGRESS NOTES Subjective PT FEELS BETTER LESS SOA Vitals Vital Signs Date Time Temp Pulse Resp B/P (MAP) Pulse Ox O2 Delivery O2 Flow Rate FiO2 09/19/17 11:42 Room Air 09/19/17 11:00 97.8 88 20 165/103 (123) 97 97.8 09/19/17 08:00 3.0 General: Alert, No acute distress Lungs: Clear Cardiovascular: S1 Abdomen: Soft Neuro Exam: Alert Extremities: No Edema Skin: Warm Labs Laboratory Tests Test 09/17/17 16:53 09/18/17 04:20 09/18/17 07:18 09/18/17 11:35 Glucose (Fingerstick) 204 mg/dL (70-99) 175 mg/dL (70-99) 246 mg/dL (70-99) White Blood Count 14.6 x10^3/uL (4.0-11.0) Red Blood Count 5.00 x10^6/uL (4.30-5.70) Hemoglobin 15.6 g/dL (13.0-17.5) Hematocrit 47.6 % (39.0-53.0) Mean Corpuscular Volume 95 fL (79-100) Mean Corpuscular Hemoglobin 31 pg (25-35) Mean Corpuscular Hemoglobin Concent 33 g/dL (31-37) Red Cell Distribution Width 13.6 % (11.5-14.5) Platelet Count 240 x10^3/uL (140-400) Neutrophils (%) (Auto) 76 % (31-73) Lymphocytes (%) (Auto) 15 % (24-48) Monocytes (%) (Auto) 9 % (0-9) Eosinophils (%) (Auto) 0 % (0-3) Basophils (%) (Auto) 0 % (0-3) Neutrophils # (Auto) 11.1 x10^3uL (1.8-7.7) Lymphocytes # (Auto) 2.2 x10^3/uL (1.0-4.8) Monocytes # (Auto) 1.3 x10^3/uL (0.0-1.1) Eosinophils # (Auto) 0.1 x10^3/uL (0.0-0.7) Basophils # (Auto) 0.0 x10^3/uL (0.0-0.2) Sodium Level 137 mmol/L (136-145) Potassium Level 4.0 mmol/L (3.5-5.1) Chloride Level 99 mmol/L (98-107) Carbon Dioxide Level 30 mmol/L (21-32) Anion Gap 8 (6-14) Blood Urea Nitrogen 19 mg/dL (8-26) Creatinine 0.8 mg/dL (0.7-1.3) Estimated GFR (Cockcroft-Gault) 98.3 Glucose Level 206 mg/dL (70-99) Calcium Level 8.9 mg/dL (8.5-10.1) Test 09/18/17 16:12 09/18/17 20:40 09/19/17 03:35 09/19/17 07:08 Glucose (Fingerstick) 274 mg/dL (70-99) 361 mg/dL (70-99) 124 mg/dL (70-99) White Blood Count 13.4 x10^3/uL (4.0-11.0) Red Blood Count 5.13 x10^6/uL (4.30-5.70) Hemoglobin 16.2 g/dL (13.0-17.5) Hematocrit 48.9 % (39.0-53.0) Mean Corpuscular Volume 95 fL (79-100) Mean Corpuscular Hemoglobin 32 pg (25-35) Mean Corpuscular Hemoglobin Concent 33 g/dL (31-37) Red Cell Distribution Width 13.4 % (11.5-14.5) Platelet Count 250 x10^3/uL (140-400) Neutrophils (%) (Auto) 65 % (31-73) Lymphocytes (%) (Auto) 20 % (24-48) Monocytes (%) (Auto) 10 % (0-9) Eosinophils (%) (Auto) 5 % (0-3) Basophils (%) (Auto) 0 % (0-3) Neutrophils # (Auto) 8.7 x10^3uL (1.8-7.7) Lymphocytes # (Auto) 2.7 x10^3/uL (1.0-4.8) Monocytes # (Auto) 1.3 x10^3/uL (0.0-1.1) Eosinophils # (Auto) 0.7 x10^3/uL (0.0-0.7) Basophils # (Auto) 0.0 x10^3/uL (0.0-0.2) Sodium Level 139 mmol/L (136-145) Potassium Level 3.5 mmol/L (3.5-5.1) Chloride Level 102 mmol/L (98-107) Carbon Dioxide Level 27 mmol/L (21-32) Anion Gap 10 (6-14) Blood Urea Nitrogen 20 mg/dL (8-26) Creatinine 0.8 mg/dL (0.7-1.3) Estimated GFR (Cockcroft-Gault) 98.3 Glucose Level 168 mg/dL (70-99) Calcium Level 9.1 mg/dL (8.5-10.1) Test 09/19/17 11:31 Glucose (Fingerstick) 219 mg/dL (70-99) Laboratory Tests Test 09/18/17 16:12 09/18/17 20:40 09/19/17 03:35 09/19/17 07:08 Glucose (Fingerstick) 274 mg/dL (70-99) 361 mg/dL (70-99) 124 mg/dL (70-99) White Blood Count 13.4 x10^3/uL (4.0-11.0) Red Blood Count 5.13 x10^6/uL (4.30-5.70) Hemoglobin 16.2 g/dL (13.0-17.5) Hematocrit 48.9 % (39.0-53.0) Mean Corpuscular Volume 95 fL (79-100) Mean Corpuscular Hemoglobin 32 pg (25-35) Mean Corpuscular Hemoglobin Concent 33 g/dL (31-37) Red Cell Distribution Width 13.4 % (11.5-14.5) Platelet Count 250 x10^3/uL (140-400) Neutrophils (%) (Auto) 65 % (31-73) Lymphocytes (%) (Auto) 20 % (24-48) Monocytes (%) (Auto) 10 % (0-9) Eosinophils (%) (Auto) 5 % (0-3) Basophils (%) (Auto) 0 % (0-3) Neutrophils # (Auto) 8.7 x10^3uL (1.8-7.7) Lymphocytes # (Auto) 2.7 x10^3/uL (1.0-4.8) Monocytes # (Auto) 1.3 x10^3/uL (0.0-1.1) Eosinophils # (Auto) 0.7 x10^3/uL (0.0-0.7) Basophils # (Auto) 0.0 x10^3/uL (0.0-0.2) Sodium Level 139 mmol/L (136-145) Potassium Level 3.5 mmol/L (3.5-5.1) Chloride Level 102 mmol/L (98-107) Carbon Dioxide Level 27 mmol/L (21-32) Anion Gap 10 (6-14) Blood Urea Nitrogen 20 mg/dL (8-26) Creatinine 0.8 mg/dL (0.7-1.3) Estimated GFR (Cockcroft-Gault) 98.3 Glucose Level 168 mg/dL (70-99) Calcium Level 9.1 mg/dL (8.5-10.1) Test 09/19/17 11:31 Glucose (Fingerstick) 219 mg/dL (70-99) Medications Active Scripts Medications Dose Route/Sig Max Daily Dose Days Date Category Benzonatate 100 Mg Capsule 100 Mg PO [id number] 09/03/17 Rx Prednisone 20 Mg Tablet 40 Mg PO DAILY 2 09/03/17 Rx Glucophage (Metformin Hcl) 500 Mg Tablet 500 Mg PO BIDWMEALS 30 09/03/17 Rx Doxycycline Hyclate 100 Mg Tablet 100 Mg PO BID 3 09/03/17 Rx Proair Hfa Inhaler (Albuterol Sulfate) 8.5 Gm Hfa.aer.ad 2 Puff INH PRN Q6HRS PRN 07/25/17 Rx Albuterol Sulfate Neb Soln (Albuterol Sulfate) 2.5 Mg/3 Ml Vial.neb 1 Vial NEB PRN Q4HRS 07/25/17 Rx Aspirin Ec (Aspirin) 81 Mg Tablet.dr 81 Mg PO DAILYWBKFT 30 03/21/17 Rx Effient (Prasugrel Hcl) 10 Mg Tablet 10 Mg PO DAILYWBKFT 30 03/21/17 Rx Hydrochlorothiazide Capsule (Hydrochlorothiazide) 12.5 Mg Capsule 12.5 Mg PO DAILY 30 03/21/17 Rx Lisinopril 20 Mg Tablet 20 Mg PO DAILY 30 03/21/17 Rx Atorvastatin Calcium 40 Mg Tablet 40 Mg PO QHS 30 03/21/17 Rx Proair Hfa Inhaler (Albuterol Sulfate) 8.5 Gm Hfa.aer.ad 1 Puff INH PRN Q6HRS PRN 03/21/17 Rx Impression . 1. Dyspnea with acute hypoxic respiratory failure secondary to acute asthma exacerbation. 2. No definite pneumonia seen. Plan . OK TO D/C FLOVENT RX WRITTEN FOLLOW UP IN OFFICE RADHA ANDREWS MD Sep 19, 2017 11:45
--- NOTE | 2017-09-19 13:50 | PDOC ---
PROGRESS NOTES Chief Complaint Chief Complaint Acute hypoxic respir failure ASSESSMENT AND PLAN: 1. Asthma exacerbation: slowly improving. on steroids PO; cont nebs suppl O2 , mucinex for cough 2. Leukocytosis: improving. reactive 2/2 suspected bronchitis, steroids. monitor 3. CAD: no acute issues. cont 2ary prevention meds 4. HTN: well controlled 5. DM: on metformin; poor control with steroids; cont ISS for now 6. Dispo: anticipate home in AM History of Present Illness History of Present Illness breathing better, still difficulties raising sputum, but rattling in chest at times Vitals Vitals Vital Signs Date Time Temp Pulse Resp B/P (MAP) Pulse Ox O2 Delivery O2 Flow Rate FiO2 09/19/17 11:42 Room Air 09/19/17 11:00 97.8 88 20 165/103 (123) 97 97.8 09/19/17 08:00 3.0 Physical Exam General: Alert, Oriented X3, Cooperative, No acute distress Heart: Regular rate Lungs: Clear Abdomen: Normal bowel sounds, Soft, No tenderness Extremities: No edema Skin: No rashes Labs LABS Laboratory Tests Test 09/18/17 16:12 09/18/17 20:40 09/19/17 03:35 09/19/17 07:08 Glucose (Fingerstick) 274 mg/dL (70-99) 361 mg/dL (70-99) 124 mg/dL (70-99) White Blood Count 13.4 x10^3/uL (4.0-11.0) Red Blood Count 5.13 x10^6/uL (4.30-5.70) Hemoglobin 16.2 g/dL (13.0-17.5) Hematocrit 48.9 % (39.0-53.0) Mean Corpuscular Volume 95 fL (79-100) Mean Corpuscular Hemoglobin 32 pg (25-35) Mean Corpuscular Hemoglobin Concent 33 g/dL (31-37) Red Cell Distribution Width 13.4 % (11.5-14.5) Platelet Count 250 x10^3/uL (140-400) Neutrophils (%) (Auto) 65 % (31-73) Lymphocytes (%) (Auto) 20 % (24-48) Monocytes (%) (Auto) 10 % (0-9) Eosinophils (%) (Auto) 5 % (0-3) Basophils (%) (Auto) 0 % (0-3) Neutrophils # (Auto) 8.7 x10^3uL (1.8-7.7) Lymphocytes # (Auto) 2.7 x10^3/uL (1.0-4.8) Monocytes # (Auto) 1.3 x10^3/uL (0.0-1.1) Eosinophils # (Auto) 0.7 x10^3/uL (0.0-0.7) Basophils # (Auto) 0.0 x10^3/uL (0.0-0.2) Sodium Level 139 mmol/L (136-145) Potassium Level 3.5 mmol/L (3.5-5.1) Chloride Level 102 mmol/L (98-107) Carbon Dioxide Level 27 mmol/L (21-32) Anion Gap 10 (6-14) Blood Urea Nitrogen 20 mg/dL (8-26) Creatinine 0.8 mg/dL (0.7-1.3) Estimated GFR (Cockcroft-Gault) 98.3 Glucose Level 168 mg/dL (70-99) Calcium Level 9.1 mg/dL (8.5-10.1) Test 09/19/17 11:31 Glucose (Fingerstick) 219 mg/dL (70-99) Assessment and Plan Assessmemt and Plan Problems Medical Problems: (1) COPD exacerbation Status: Acute Problems: Comment Review of Relevant I have reviewed the following items marty (where applicable) has been applied. Labs Laboratory Tests Test 09/17/17 16:53 09/18/17 04:20 09/18/17 07:18 09/18/17 11:35 Glucose (Fingerstick) 204 mg/dL (70-99) 175 mg/dL (70-99) 246 mg/dL (70-99) White Blood Count 14.6 x10^3/uL (4.0-11.0) Red Blood Count 5.00 x10^6/uL (4.30-5.70) Hemoglobin 15.6 g/dL (13.0-17.5) Hematocrit 47.6 % (39.0-53.0) Mean Corpuscular Volume 95 fL (79-100) Mean Corpuscular Hemoglobin 31 pg (25-35) Mean Corpuscular Hemoglobin Concent 33 g/dL (31-37) Red Cell Distribution Width 13.6 % (11.5-14.5) Platelet Count 240 x10^3/uL (140-400) Neutrophils (%) (Auto) 76 % (31-73) Lymphocytes (%) (Auto) 15 % (24-48) Monocytes (%) (Auto) 9 % (0-9) Eosinophils (%) (Auto) 0 % (0-3) Basophils (%) (Auto) 0 % (0-3) Neutrophils # (Auto) 11.1 x10^3uL (1.8-7.7) Lymphocytes # (Auto) 2.2 x10^3/uL (1.0-4.8) Monocytes # (Auto) 1.3 x10^3/uL (0.0-1.1) Eosinophils # (Auto) 0.1 x10^3/uL (0.0-0.7) Basophils # (Auto) 0.0 x10^3/uL (0.0-0.2) Sodium Level 137 mmol/L (136-145) Potassium Level 4.0 mmol/L (3.5-5.1) Chloride Level 99 mmol/L (98-107) Carbon Dioxide Level 30 mmol/L (21-32) Anion Gap 8 (6-14) Blood Urea Nitrogen 19 mg/dL (8-26) Creatinine 0.8 mg/dL (0.7-1.3) Estimated GFR (Cockcroft-Gault) 98.3 Glucose Level 206 mg/dL (70-99) Calcium Level 8.9 mg/dL (8.5-10.1) Test 09/18/17 16:12 09/18/17 20:40 09/19/17 03:35 09/19/17 07:08 Glucose (Fingerstick) 274 mg/dL (70-99) 361 mg/dL (70-99) 124 mg/dL (70-99) White Blood Count 13.4 x10^3/uL (4.0-11.0) Red Blood Count 5.13 x10^6/uL (4.30-5.70) Hemoglobin 16.2 g/dL (13.0-17.5) Hematocrit 48.9 % (39.0-53.0) Mean Corpuscular Volume 95 fL (79-100) Mean Corpuscular Hemoglobin 32 pg (25-35) Mean Corpuscular Hemoglobin Concent 33 g/dL (31-37) Red Cell Distribution Width 13.4 % (11.5-14.5) Platelet Count 250 x10^3/uL (140-400) Neutrophils (%) (Auto) 65 % (31-73) Lymphocytes (%) (Auto) 20 % (24-48) Monocytes (%) (Auto) 10 % (0-9) Eosinophils (%) (Auto) 5 % (0-3) Basophils (%) (Auto) 0 % (0-3) Neutrophils # (Auto) 8.7 x10^3uL (1.8-7.7) Lymphocytes # (Auto) 2.7 x10^3/uL (1.0-4.8) Monocytes # (Auto) 1.3 x10^3/uL (0.0-1.1) Eosinophils # (Auto) 0.7 x10^3/uL (0.0-0.7) Basophils # (Auto) 0.0 x10^3/uL (0.0-0.2) Sodium Level 139 mmol/L (136-145) Potassium Level 3.5 mmol/L (3.5-5.1) Chloride Level 102 mmol/L (98-107) Carbon Dioxide Level 27 mmol/L (21-32) Anion Gap 10 (6-14) Blood Urea Nitrogen 20 mg/dL (8-26) Creatinine 0.8 mg/dL (0.7-1.3) Estimated GFR (Cockcroft-Gault) 98.3 Glucose Level 168 mg/dL (70-99) Calcium Level 9.1 mg/dL (8.5-10.1) Test 09/19/17 11:31 Glucose (Fingerstick) 219 mg/dL (70-99) Laboratory Tests Test 09/18/17 16:12 09/18/17 20:40 09/19/17 03:35 09/19/17 07:08 Glucose (Fingerstick) 274 mg/dL (70-99) 361 mg/dL (70-99) 124 mg/dL (70-99) White Blood Count 13.4 x10^3/uL (4.0-11.0) Red Blood Count 5.13 x10^6/uL (4.30-5.70) Hemoglobin 16.2 g/dL (13.0-17.5) Hematocrit 48.9 % (39.0-53.0) Mean Corpuscular Volume 95 fL (79-100) Mean Corpuscular Hemoglobin 32 pg (25-35) Mean Corpuscular Hemoglobin Concent 33 g/dL (31-37) Red Cell Distribution Width 13.4 % (11.5-14.5) Platelet Count 250 x10^3/uL (140-400) Neutrophils (%) (Auto) 65 % (31-73) Lymphocytes (%) (Auto) 20 % (24-48) Monocytes (%) (Auto) 10 % (0-9) Eosinophils (%) (Auto) 5 % (0-3) Basophils (%) (Auto) 0 % (0-3) Neutrophils # (Auto) 8.7 x10^3uL (1.8-7.7) Lymphocytes # (Auto) 2.7 x10^3/uL (1.0-4.8) Monocytes # (Auto) 1.3 x10^3/uL (0.0-1.1) Eosinophils # (Auto) 0.7 x10^3/uL (0.0-0.7) Basophils # (Auto) 0.0 x10^3/uL (0.0-0.2) Sodium Level 139 mmol/L (136-145) Potassium Level 3.5 mmol/L (3.5-5.1) Chloride Level 102 mmol/L (98-107) Carbon Dioxide Level 27 mmol/L (21-32) Anion Gap 10 (6-14) Blood Urea Nitrogen 20 mg/dL (8-26) Creatinine 0.8 mg/dL (0.7-1.3) Estimated GFR (Cockcroft-Gault) 98.3 Glucose Level 168 mg/dL (70-99) Calcium Level 9.1 mg/dL (8.5-10.1) Test 09/19/17 11:31 Glucose (Fingerstick) 219 mg/dL (70-99) Medications Current Medications Methylprednisolone Sodium Succinate (SOLU-Medrol 125MG VIAL) 125 mg 1X ONCE IV Last administered on 09/15/17t 04:15; Start 09/15/17 at 04:00; Stop at 04:01; Status DC Albuterol/ Ipratropium (Duoneb) 3 ml 1X ONCE NEB Last administered on 03:30; Start 09/15/17 at 04:00; Stop 09/15/17 at 04:01; Status DC Albuterol/ Ipratropium (Duoneb) 3 ml 1X ONCE NEB ; Start 09/15/17 at 04:00; Stop 09/15/17 at 04:01; Status DC Albuterol/ Ipratropium (Duoneb) 3 ml 1X ONCE NEB ; Start 09/15/17 at 04:00; Stop 09/15/17 at 04:01; Status DC Ondansetron HCl (Zofran) 4 mg PRN Q8HRS PRN IV NAUSEA/VOMITING; Start at 05:15; Stop 09/16/17 at 05:14; Status DC Albuterol/ Ipratropium (Duoneb) 3 ml RTQID NEB Last administered on 09/16/17 10:55; Start 09/15/17 at 08:00; Stop 09/16/17 at 07:59; Status DC Dextrose (Dextrose 50%-Water Syringe) 12.5 gm PRN Q15MIN PRN IV SEE COMMENTS; Start 09/15/17 at 07:30 Budesonide (Pulmicort) 0.5 mg RTBID NEB Last administered on 09/19/17 07:38; Start 09/15/17 at 10:30 Methylprednisolone Sodium Succinate (SOLU-Medrol 40MG VIAL) 40 mg Q8HRS IV Last administered on 09/17/17 05:56; Start 09/15/17 at 10:15; Stop 09/17/17 at 12:30; Status DC Aspirin (Ecotrin) 81 mg DAILYWBKFT PO Last administered on 09/19/17 08:31; Start 09/15/17 at 17:00 Atorvastatin Calcium (Lipitor) 40 mg QHS PO Last administered on 09/18/17 20: 40; Start 09/15/17 at 21:00 Lisinopril (Prinivil) 20 mg DAILY PO Last administered on 09/19/17 08:32; Start 09/15/17 at 17:00 Metformin HCl (Glucophage) 500 mg BIDWMEALS PO Last administered on 09/19/17 08:31; Start 09/15/17 at 17:00 Prasugrel (Effient) 10 mg DAILYWBKFT PO Last administered on 09/19/17 08:32; Start 09/15/17 at 17:00 Albuterol/ Ipratropium (Duoneb) 3 ml STK-MED ONCE .ROUTE ; Start 09/16/17 at 14 :50; Stop 09/16/17 at 14:51; Status DC Albuterol/ Ipratropium (Duoneb) 3 ml RTQID NEB Last administered on 09/19/17 11:41; Start 09/16/17 at 20:00 Methylprednisolone Sodium Succinate (SOLU-Medrol 40MG VIAL) 40 mg BID IV ; Start 09/17/17 at 21:00; Stop 09/17/17 at 21:00; Status DC Prednisone (Prednisone) 40 mg DAILY PO Last administered on 09/19/17 08:32; Start 09/17/17 at 14:30 Multi-Ingredient Mouthwash/Gargle (Gi Cocktail Single Dose) 15 ml 1X ONCE SWSW Last administered on 09/17/17 14:33; Start 09/17/17 at 14:45; Stop at 14:46; Status DC Guaifenesin (MUCINEX ER with DM) 1 tab BID PO Last administered on 09/19/17 08:31; Start 09/17/17 at 21:00 Active Scripts Active Benzonatate 100 Mg Capsule 100 Mg PO [id number] Prednisone 20 Mg Tablet 40 Mg PO DAILY 2 Days Glucophage (Metformin Hcl) 500 Mg Tablet 500 Mg PO BIDWMEALS 30 Days Doxycycline Hyclate 100 Mg Tablet 100 Mg PO BID 3 Days Proair Hfa Inhaler (Albuterol Sulfate) 8.5 Gm Hfa.aer.ad 2 Puff INH PRN Q6HRS PRN Albuterol Sulfate Neb Soln (Albuterol Sulfate) 2.5 Mg/3 Ml Vial.neb 1 Vial NEB PRN Q4HRS Aspirin Ec (Aspirin) 81 Mg Tablet. 81 Mg PO DAILYWBKFT 30 Days Effient (Prasugrel Hcl) 10 Mg Tablet 10 Mg PO DAILYWBKFT 30 Days Hydrochlorothiazide Capsule (Hydrochlorothiazide) 12.5 Mg Capsule 12.5 Mg PO DAILY 30 Days Lisinopril 20 Mg Tablet 20 Mg PO DAILY 30 Days Atorvastatin Calcium 40 Mg Tablet 40 Mg PO QHS 30 Days Proair Hfa Inhaler (Albuterol Sulfate) 8.5 Gm Hfa.aer.ad 1 Puff INH PRN Q6HRS PRN Vitals/I & O Vital Sign - Last 24 Hours 09/18/17 09/18/17 09/18/17 09/18/17 14:39 16:29 19:51 20:00 Temp 98.9 98.1 98.9 98.1 Pulse 88 104 Resp 20 16 B/P (MAP) 121/82 (95) 135/77 (96) Pulse Ox 94 93 92 O2 Delivery Room Air Room Air Room Air Room Air 09/18/17 09/18/17 09/19/17 09/19/17 20:30 23:30 03:50 07:00 Temp 98.2 97.9 97.6 98.2 97.9 97.6 Pulse 95 88 72 Resp 18 16 20 B/P (MAP) 125/81 (96) 144/104 (117) 145/106 (119) Pulse Ox 95 94 94 95 O2 Delivery Room Air Room Air Room Air Room Air 09/19/17 09/19/17 09/19/17 09/19/17 07:40 08:00 08:32 11:00 Temp 97.8 97.8 Pulse 72 88 Resp 20 B/P (MAP) 145/106 165/103 (123) Pulse Ox 95 97 O2 Delivery Room Air Room Air Room Air O2 Flow Rate 3.0 09/19/17 11:42 O2 Delivery Room Air Intake and Output 09/18/17 09/18/17 09/19/17 15:00 23:00 07:00 Intake Total 1600 ml 620 ml Balance 1600 ml 620 ml JANETH TRACY MD Sep 19, 2017 13:50
--- NOTE | 2017-09-19 13:53 | PDOC ---
PROGRESS NOTES Chief Complaint Chief Complaint Acute hypoxic respir failure ASSESSMENT AND PLAN: 1. Asthma exacerbation: slowly improving. on steroids PO; cont nebs suppl O2 , mucinex for cough 2. Leukocytosis: improving. reactive 2/2 suspected bronchitis, steroids. monitor 3. CAD: no acute issues. cont 2ary prevention meds 4. HTN: well controlled 5. DM: on metformin; poor control with steroids; cont ISS for now 6. Dispo: anticipate home in AM History of Present Illness History of Present Illness breathing better, still difficulties raising sputum, but rattling in chest at times Vitals Vitals Vital Signs Date Time Temp Pulse Resp B/P (MAP) Pulse Ox O2 Delivery O2 Flow Rate FiO2 09/19/17 11:42 Room Air 09/19/17 11:00 97.8 88 20 165/103 (123) 97 97.8 09/19/17 08:00 3.0 Physical Exam General: Alert, Oriented X3, Cooperative, No acute distress Heart: Regular rate Lungs: Clear Abdomen: Normal bowel sounds, Soft, No tenderness Extremities: No edema Skin: No rashes Labs LABS Laboratory Tests Test 09/18/17 16:12 09/18/17 20:40 09/19/17 03:35 09/19/17 07:08 Glucose (Fingerstick) 274 mg/dL (70-99) 361 mg/dL (70-99) 124 mg/dL (70-99) White Blood Count 13.4 x10^3/uL (4.0-11.0) Red Blood Count 5.13 x10^6/uL (4.30-5.70) Hemoglobin 16.2 g/dL (13.0-17.5) Hematocrit 48.9 % (39.0-53.0) Mean Corpuscular Volume 95 fL (79-100) Mean Corpuscular Hemoglobin 32 pg (25-35) Mean Corpuscular Hemoglobin Concent 33 g/dL (31-37) Red Cell Distribution Width 13.4 % (11.5-14.5) Platelet Count 250 x10^3/uL (140-400) Neutrophils (%) (Auto) 65 % (31-73) Lymphocytes (%) (Auto) 20 % (24-48) Monocytes (%) (Auto) 10 % (0-9) Eosinophils (%) (Auto) 5 % (0-3) Basophils (%) (Auto) 0 % (0-3) Neutrophils # (Auto) 8.7 x10^3uL (1.8-7.7) Lymphocytes # (Auto) 2.7 x10^3/uL (1.0-4.8) Monocytes # (Auto) 1.3 x10^3/uL (0.0-1.1) Eosinophils # (Auto) 0.7 x10^3/uL (0.0-0.7) Basophils # (Auto) 0.0 x10^3/uL (0.0-0.2) Sodium Level 139 mmol/L (136-145) Potassium Level 3.5 mmol/L (3.5-5.1) Chloride Level 102 mmol/L (98-107) Carbon Dioxide Level 27 mmol/L (21-32) Anion Gap 10 (6-14) Blood Urea Nitrogen 20 mg/dL (8-26) Creatinine 0.8 mg/dL (0.7-1.3) Estimated GFR (Cockcroft-Gault) 98.3 Glucose Level 168 mg/dL (70-99) Calcium Level 9.1 mg/dL (8.5-10.1) Test 09/19/17 11:31 Glucose (Fingerstick) 219 mg/dL (70-99) Assessment and Plan Assessmemt and Plan Problems Medical Problems: (1) COPD exacerbation Status: Acute ASSESSMENT AND PLAN: 1. Asthma exacerbation: slowly improving. on steroids PO; cont nebs suppl O2 , mucinex for cough 2. Leukocytosis: improving. reactive 2/2 suspected bronchitis, steroids. monitor 3. CAD: no acute issues. cont 2ary prevention meds 4. HTN: well controlled 5. DM: on metformin; poor control with steroids; cont ISS for now 6. Dispo: anticipate home D/W DR ANDREWS History of Present Illness History of Present Illness breathing better, still difficulties raising sputum, Vitals Vitals Vital Signs Date Time Temp Pulse Resp B/P (MAP) Pulse Ox O2 Delivery O2 Flow Rate FiO2 09/18/17 16:29 93 Room Air 09/18/17 14:39 98.9 88 20 121/82 (95) 98.9 09/18/17 10:30 1.0 Physical Exam General: Alert, Oriented X3, Cooperative, No acute distress Heart: Regular rate Lungs: Clear Abdomen: Normal bowel sounds, Soft, No tenderness Extremities: No edema Skin: No rashes Problems: Comment Review of Relevant I have reviewed the following items marty (where applicable) has been applied. Labs Laboratory Tests Test 09/17/17 16:53 09/18/17 04:20 09/18/17 07:18 09/18/17 11:35 Glucose (Fingerstick) 204 mg/dL (70-99) 175 mg/dL (70-99) 246 mg/dL (70-99) White Blood Count 14.6 x10^3/uL (4.0-11.0) Red Blood Count 5.00 x10^6/uL (4.30-5.70) Hemoglobin 15.6 g/dL (13.0-17.5) Hematocrit 47.6 % (39.0-53.0) Mean Corpuscular Volume 95 fL (79-100) Mean Corpuscular Hemoglobin 31 pg (25-35) Mean Corpuscular Hemoglobin Concent 33 g/dL (31-37) Red Cell Distribution Width 13.6 % (11.5-14.5) Platelet Count 240 x10^3/uL (140-400) Neutrophils (%) (Auto) 76 % (31-73) Lymphocytes (%) (Auto) 15 % (24-48) Monocytes (%) (Auto) 9 % (0-9) Eosinophils (%) (Auto) 0 % (0-3) Basophils (%) (Auto) 0 % (0-3) Neutrophils # (Auto) 11.1 x10^3uL (1.8-7.7) Lymphocytes # (Auto) 2.2 x10^3/uL (1.0-4.8) Monocytes # (Auto) 1.3 x10^3/uL (0.0-1.1) Eosinophils # (Auto) 0.1 x10^3/uL (0.0-0.7) Basophils # (Auto) 0.0 x10^3/uL (0.0-0.2) Sodium Level 137 mmol/L (136-145) Potassium Level 4.0 mmol/L (3.5-5.1) Chloride Level 99 mmol/L (98-107) Carbon Dioxide Level 30 mmol/L (21-32) Anion Gap 8 (6-14) Blood Urea Nitrogen 19 mg/dL (8-26) Creatinine 0.8 mg/dL (0.7-1.3) Estimated GFR (Cockcroft-Gault) 98.3 Glucose Level 206 mg/dL (70-99) Calcium Level 8.9 mg/dL (8.5-10.1) Test 09/18/17 16:12 09/18/17 20:40 09/19/17 03:35 09/19/17 07:08 Glucose (Fingerstick) 274 mg/dL (70-99) 361 mg/dL (70-99) 124 mg/dL (70-99) White Blood Count 13.4 x10^3/uL (4.0-11.0) Red Blood Count 5.13 x10^6/uL (4.30-5.70) Hemoglobin 16.2 g/dL (13.0-17.5) Hematocrit 48.9 % (39.0-53.0) Mean Corpuscular Volume 95 fL (79-100) Mean Corpuscular Hemoglobin 32 pg (25-35) Mean Corpuscular Hemoglobin Concent 33 g/dL (31-37) Red Cell Distribution Width 13.4 % (11.5-14.5) Platelet Count 250 x10^3/uL (140-400) Neutrophils (%) (Auto) 65 % (31-73) Lymphocytes (%) (Auto) 20 % (24-48) Monocytes (%) (Auto) 10 % (0-9) Eosinophils (%) (Auto) 5 % (0-3) Basophils (%) (Auto) 0 % (0-3) Neutrophils # (Auto) 8.7 x10^3uL (1.8-7.7) Lymphocytes # (Auto) 2.7 x10^3/uL (1.0-4.8) Monocytes # (Auto) 1.3 x10^3/uL (0.0-1.1) Eosinophils # (Auto) 0.7 x10^3/uL (0.0-0.7) Basophils # (Auto) 0.0 x10^3/uL (0.0-0.2) Sodium Level 139 mmol/L (136-145) Potassium Level 3.5 mmol/L (3.5-5.1) Chloride Level 102 mmol/L (98-107) Carbon Dioxide Level 27 mmol/L (21-32) Anion Gap 10 (6-14) Blood Urea Nitrogen 20 mg/dL (8-26) Creatinine 0.8 mg/dL (0.7-1.3) Estimated GFR (Cockcroft-Gault) 98.3 Glucose Level 168 mg/dL (70-99) Calcium Level 9.1 mg/dL (8.5-10.1) Test 09/19/17 11:31 Glucose (Fingerstick) 219 mg/dL (70-99) Laboratory Tests Test 09/18/17 16:12 09/18/17 20:40 09/19/17 03:35 09/19/17 07:08 Glucose (Fingerstick) 274 mg/dL (70-99) 361 mg/dL (70-99) 124 mg/dL (70-99) White Blood Count 13.4 x10^3/uL (4.0-11.0) Red Blood Count 5.13 x10^6/uL (4.30-5.70) Hemoglobin 16.2 g/dL (13.0-17.5) Hematocrit 48.9 % (39.0-53.0) Mean Corpuscular Volume 95 fL (79-100) Mean Corpuscular Hemoglobin 32 pg (25-35) Mean Corpuscular Hemoglobin Concent 33 g/dL (31-37) Red Cell Distribution Width 13.4 % (11.5-14.5) Platelet Count 250 x10^3/uL (140-400) Neutrophils (%) (Auto) 65 % (31-73) Lymphocytes (%) (Auto) 20 % (24-48) Monocytes (%) (Auto) 10 % (0-9) Eosinophils (%) (Auto) 5 % (0-3) Basophils (%) (Auto) 0 % (0-3) Neutrophils # (Auto) 8.7 x10^3uL (1.8-7.7) Lymphocytes # (Auto) 2.7 x10^3/uL (1.0-4.8) Monocytes # (Auto) 1.3 x10^3/uL (0.0-1.1) Eosinophils # (Auto) 0.7 x10^3/uL (0.0-0.7) Basophils # (Auto) 0.0 x10^3/uL (0.0-0.2) Sodium Level 139 mmol/L (136-145) Potassium Level 3.5 mmol/L (3.5-5.1) Chloride Level 102 mmol/L (98-107) Carbon Dioxide Level 27 mmol/L (21-32) Anion Gap 10 (6-14) Blood Urea Nitrogen 20 mg/dL (8-26) Creatinine 0.8 mg/dL (0.7-1.3) Estimated GFR (Cockcroft-Gault) 98.3 Glucose Level 168 mg/dL (70-99) Calcium Level 9.1 mg/dL (8.5-10.1) Test 09/19/17 11:31 Glucose (Fingerstick) 219 mg/dL (70-99) Medications Current Medications Methylprednisolone Sodium Succinate (SOLU-Medrol 125MG VIAL) 125 mg 1X ONCE IV Last administered on 09/15/17 04:15; Start 09/15/17 at 04:00; Stop at 04:01; Status DC Albuterol/ Ipratropium (Duoneb) 3 ml 1X ONCE NEB Last administered on 03:30; Start 09/15/17 at 04:00; Stop 09/15/17 at 04:01; Status DC Albuterol/ Ipratropium (Duoneb) 3 ml 1X ONCE NEB ; Start 09/15/17 at 04:00; Stop 09/15/17 at 04:01; Status DC Albuterol/ Ipratropium (Duoneb) 3 ml 1X ONCE NEB ; Start 09/15/17 at 04:00; Stop 09/15/17 at 04:01; Status DC Ondansetron HCl (Zofran) 4 mg PRN Q8HRS PRN IV NAUSEA/VOMITING; Start at 05:15; Stop 09/16/17 at 05:14; Status DC Albuterol/ Ipratropium (Duoneb) 3 ml RTQID NEB Last administered on 09/16/17t 10:55; Start 09/15/17 at 08:00; Stop 09/16/17 at 07:59; Status DC Dextrose (Dextrose 50%-Water Syringe) 12.5 gm PRN Q15MIN PRN IV SEE COMMENTS; Start 09/15/17 at 07:30 Budesonide (Pulmicort) 0.5 mg RTBID NEB Last administered on 09/19/17 07:38; Start 09/15/17 at 10:30 Methylprednisolone Sodium Succinate (SOLU-Medrol 40MG VIAL) 40 mg Q8HRS IV Last administered on 09/17/17 05:56; Start 09/15/17 at 10:15; Stop 09/17/17 at 12:30; Status DC Aspirin (Ecotrin) 81 mg DAILYWBKFT PO Last administered on 09/19/17 08:31; Start 09/15/17 at 17:00 Atorvastatin Calcium (Lipitor) 40 mg QHS PO Last administered on 09/18/17 20: 40; Start 09/15/17 at 21:00 Lisinopril (Prinivil) 20 mg DAILY PO Last administered on 09/19/17 08:32; Start 09/15/17 at 17:00 Metformin HCl (Glucophage) 500 mg BIDWMEALS PO Last administered on 09/19/17 08:31; Start 09/15/17 at 17:00 Prasugrel (Effient) 10 mg DAILYWBKFT PO Last administered on 09/19/17 08:32; Start 09/15/17 at 17:00 Albuterol/ Ipratropium (Duoneb) 3 ml STK-MED ONCE .ROUTE ; Start 09/16/17 at 14 :50; Stop 09/16/17 at 14:51; Status DC Albuterol/ Ipratropium (Duoneb) 3 ml RTQID NEB Last administered on 09/19/17 11:41; Start 09/16/17 at 20:00 Methylprednisolone Sodium Succinate (SOLU-Medrol 40MG VIAL) 40 mg BID IV ; Start 09/17/17 at 21:00; Stop 09/17/17 at 21:00; Status DC Prednisone (Prednisone) 40 mg DAILY PO Last administered on 09/19/17 08:32; Start 09/17/17 at 14:30 Multi-Ingredient Mouthwash/Gargle (Gi Cocktail Single Dose) 15 ml 1X ONCE SWSW Last administered on 09/17/17 14:33; Start 09/17/17 at 14:45; Stop at 14:46; Status DC Guaifenesin (MUCINEX ER with DM) 1 tab BID PO Last administered on 09/19/17t 08:31; Start 09/17/17 at 21:00 Active Scripts Active Benzonatate 100 Mg Capsule 100 Mg PO [id number] Prednisone 20 Mg Tablet 40 Mg PO DAILY 2 Days Glucophage (Metformin Hcl) 500 Mg Tablet 500 Mg PO BIDWMEALS 30 Days Doxycycline Hyclate 100 Mg Tablet 100 Mg PO BID 3 Days Proair Hfa Inhaler (Albuterol Sulfate) 8.5 Gm Hfa.aer.ad 2 Puff INH PRN Q6HRS PRN Albuterol Sulfate Neb Soln (Albuterol Sulfate) 2.5 Mg/3 Ml Vial.neb 1 Vial NEB PRN Q4HRS Aspirin Ec (Aspirin) 81 Mg Tablet.dr 81 Mg PO DAILYWBKFT 30 Days Effient (Prasugrel Hcl) 10 Mg Tablet 10 Mg PO DAILYWBKFT 30 Days Hydrochlorothiazide Capsule (Hydrochlorothiazide) 12.5 Mg Capsule 12.5 Mg PO DAILY 30 Days Lisinopril 20 Mg Tablet 20 Mg PO DAILY 30 Days Atorvastatin Calcium 40 Mg Tablet 40 Mg PO QHS 30 Days Proair Hfa Inhaler (Albuterol Sulfate) 8.5 Gm Hfa.aer.ad 1 Puff INH PRN Q6HRS PRN Vitals/I & O Vital Sign - Last 24 Hours 09/18/17 09/18/17 09/18/17 09/18/17 14:39 16:29 19:51 20:00 Temp 98.9 98.1 98.9 98.1 Pulse 88 104 Resp 20 16 B/P (MAP) 121/82 (95) 135/77 (96) Pulse Ox 94 93 92 O2 Delivery Room Air Room Air Room Air Room Air 09/18/17 09/18/17 09/19/17 09/19/17 20:30 23:30 03:50 07:00 Temp 98.2 97.9 97.6 98.2 97.9 97.6 Pulse 95 88 72 Resp 18 16 20 B/P (MAP) 125/81 (96) 144/104 (117) 145/106 (119) Pulse Ox 95 94 94 95 O2 Delivery Room Air Room Air Room Air Room Air 09/19/17 09/19/17 09/19/1717 07:40 08:00 08:32 11:00 Temp 97.8 97.8 Pulse 72 88 Resp 20 B/P (MAP) 145/106 165/103 (123) Pulse Ox 95 97 O2 Delivery Room Air Room Air Room Air O2 Flow Rate 3.0 09/19/17 11:42 O2 Delivery Room Air Intake and Output 09/18/17 09/18/17 09/19/17 15:00 23:00 07:00 Intake Total 1600 ml 620 ml Balance 1600 ml 620 ml JANETH TRACY MD Sep 19, 2017 13:53
[2017-09-19] MEDS ORDERED: FLUT12AE IH (14:07)
[2017-09-19 15:00] VITALS: BP 123/84
[2017-09-19 19:00] VITALS: BP 146/111
[2017-09-19] MEDS: ATORVASTATIN CALCIUM 40 MG TABLET. PO SCH (21:17)
[2017-09-19 23:00] VITALS: BP 119/65
[2017-09-20 03:00] VITALS: BP 126/82
[2017-09-20 03:44] LABS: BASO # 0.1 x10^3/uL (0.0-0.2); BASO % 1 % (0-3); EOS % 15 % (0-3); HEMATOCRIT 47.5 % (39.0-53.0); HEMOGLOBIN 15.5 g/dL (13.0-17.5); LYMPH # 3.2 x10^3/uL (1.0-4.8); LYMPH % 27 % (24-48); MEAN CORPUSCULAR HEMOGLOBIN 31 pg (25-35); MEAN CORPUSCULAR HGB CONC 33 g/dL (31-37); MEAN CORPUSCULAR VOLUME 96 fL (79-100); MONO % 8 % (0-9); NEUT % 49 % (31-73); PLATELET COUNT 255 x10^3/uL (140-400); RED BLOOD COUNT 4.96 x10^6/uL (4.30-5.70); RED CELL DISTRIBUTION WIDTH 13.6 % (11.5-14.5); WHITE BLOOD COUNT 11.7 x10^3/uL (4.0-11.0)
[2017-09-20 04:12] LABS: CALCIUM 8.4 mg/dL (8.5-10.1); CREATININE 0.8 mg/dL (0.7-1.3); GFR 98.3; POTASSIUM 3.7 mmol/L (3.5-5.1)
[2017-09-20 07:00] VITALS: BP 134/68
[2017-09-20] MEDS: BUDESONIDE 0.5 MG/2 ML NEBU. NEB SCH (08:05)
[2017-09-20] MEDS: IPRATRPIUM/ALBUTEROL 0.5/2.5MG 3 ML NEBU. NEB SCH (08:05)
[2017-09-20] MEDS: metFORMIN 500 MG TABLET PO SCH (08:30)
[2017-09-20] MEDS: LISINOPRIL 20 MG TABLET PO SCH (08:30)
[2017-09-20] MEDS: ASPIRIN ENTERIC COATED 81 MG TABLET.DR. PO SCH (08:30)
[2017-09-20] MEDS: predniSONE 20 MG TABLET PO SCH (08:30)
[2017-09-20] MEDS: guaiFENesin DM 600/30MG 1 TAB TAB.ER.12H PO SCH (08:30)
[2017-09-20] MEDS: PRASUGREL 10 MG TABLET. PO SCH (08:31)
--- NOTE | 2017-09-20 09:03 | PDOC ---
PROGRESS NOTES Chief Complaint Chief Complaint Acute hypoxic respir failure ASSESSMENT AND PLAN: 1. Asthma exacerbation: slowly improving. on steroids PO; cont nebs suppl O2 , mucinex for cough 2. Leukocytosis: improving. reactive 2/2 suspected bronchitis, steroids. monitor 3. CAD: no acute issues. cont 2ary prevention meds 4. HTN: well controlled 5. DM: on metformin; poor control with steroids; cont ISS for now 6. Dispo: anticipate home in AM History of Present Illness History of Present Illness breathing better, still difficulties raising sputum, but rattling in chest at times Vitals Vitals Vital Signs Date Time Temp Pulse Resp B/P (MAP) Pulse Ox O2 Delivery O2 Flow Rate FiO2 09/20/17 08:30 78 134/68 09/20/17 08:06 98 Room Air 09/20/17 07:00 97.5 20 97.5 09/19/17 08:00 3.0 Physical Exam General: Alert, Oriented X3, Cooperative, No acute distress Heart: Regular rate Lungs: Clear Abdomen: Normal bowel sounds, Soft, No tenderness Extremities: No edema Skin: No rashes Labs LABS Laboratory Tests Test 09/19/17 11:31 09/19/17 16:27 09/19/17 20:41 09/20/17 03:15 Glucose (Fingerstick) 219 mg/dL (70-99) 267 mg/dL (70-99) 272 mg/dL (70-99) White Blood Count 11.7 x10^3/uL (4.0-11.0) Red Blood Count 4.96 x10^6/uL (4.30-5.70) Hemoglobin 15.5 g/dL (13.0-17.5) Hematocrit 47.5 % (39.0-53.0) Mean Corpuscular Volume 96 fL (79-100) Mean Corpuscular Hemoglobin 31 pg (25-35) Mean Corpuscular Hemoglobin Concent 33 g/dL (31-37) Red Cell Distribution Width 13.6 % (11.5-14.5) Platelet Count 255 x10^3/uL (140-400) Neutrophils (%) (Auto) 49 % (31-73) Lymphocytes (%) (Auto) 27 % (24-48) Monocytes (%) (Auto) 8 % (0-9) Eosinophils (%) (Auto) 15 % (0-3) Basophils (%) (Auto) 1 % (0-3) Neutrophils # (Auto) 5.7 x10^3uL (1.8-7.7) Lymphocytes # (Auto) 3.2 x10^3/uL (1.0-4.8) Monocytes # (Auto) 1.0 x10^3/uL (0.0-1.1) Eosinophils # (Auto) 1.8 x10^3/uL (0.0-0.7) Basophils # (Auto) 0.1 x10^3/uL (0.0-0.2) Sodium Level 138 mmol/L (136-145) Potassium Level 3.7 mmol/L (3.5-5.1) Chloride Level 101 mmol/L (98-107) Carbon Dioxide Level 29 mmol/L (21-32) Anion Gap 8 (6-14) Blood Urea Nitrogen 19 mg/dL (8-26) Creatinine 0.8 mg/dL (0.7-1.3) Estimated GFR (Cockcroft-Gault) 98.3 Glucose Level 167 mg/dL (70-99) Calcium Level 8.4 mg/dL (8.5-10.1) Test 09/20/17 07:10 Glucose (Fingerstick) 137 mg/dL (70-99) Assessment and Plan Assessmemt and Plan Problems Medical Problems: (1) COPD exacerbation Status: Acute ASSESSMENT AND PLAN: 1. Asthma exacerbation: slowly improving. on steroids PO; , mucinex for cough 2. Leukocytosis: improving. reactive 2/2 suspected bronchitis, steroids. 3. CAD: no acute issues. cont 2ary prevention meds 4. HTN: well controlled 5. DM: on metformin; poor control with steroids; 6. Dispo: anticipate home today Problems: Comment Review of Relevant I have reviewed the following items marty (where applicable) has been applied. Labs Laboratory Tests Test 09/18/17 11:35 09/18/17 16:12 09/18/17 20:40 09/19/17 03:35 Glucose (Fingerstick) 246 mg/dL (70-99) 274 mg/dL (70-99) 361 mg/dL (70-99) White Blood Count 13.4 x10^3/uL (4.0-11.0) Red Blood Count 5.13 x10^6/uL (4.30-5.70) Hemoglobin 16.2 g/dL (13.0-17.5) Hematocrit 48.9 % (39.0-53.0) Mean Corpuscular Volume 95 fL (79-100) Mean Corpuscular Hemoglobin 32 pg (25-35) Mean Corpuscular Hemoglobin Concent 33 g/dL (31-37) Red Cell Distribution Width 13.4 % (11.5-14.5) Platelet Count 250 x10^3/uL (140-400) Neutrophils (%) (Auto) 65 % (31-73) Lymphocytes (%) (Auto) 20 % (24-48) Monocytes (%) (Auto) 10 % (0-9) Eosinophils (%) (Auto) 5 % (0-3) Basophils (%) (Auto) 0 % (0-3) Neutrophils # (Auto) 8.7 x10^3uL (1.8-7.7) Lymphocytes # (Auto) 2.7 x10^3/uL (1.0-4.8) Monocytes # (Auto) 1.3 x10^3/uL (0.0-1.1) Eosinophils # (Auto) 0.7 x10^3/uL (0.0-0.7) Basophils # (Auto) 0.0 x10^3/uL (0.0-0.2) Sodium Level 139 mmol/L (136-145) Potassium Level 3.5 mmol/L (3.5-5.1) Chloride Level 102 mmol/L (98-107) Carbon Dioxide Level 27 mmol/L (21-32) Anion Gap 10 (6-14) Blood Urea Nitrogen 20 mg/dL (8-26) Creatinine 0.8 mg/dL (0.7-1.3) Estimated GFR (Cockcroft-Gault) 98.3 Glucose Level 168 mg/dL (70-99) Calcium Level 9.1 mg/dL (8.5-10.1) Test 09/19/17 07:08 09/19/17 11:31 09/19/17 16:27 09/19/17 20:41 Glucose (Fingerstick) 124 mg/dL (70-99) 219 mg/dL (70-99) 267 mg/dL (70-99) 272 mg/dL (70-99) Test 09/20/17 03:15 09/20/17 07:10 White Blood Count 11.7 x10^3/uL (4.0-11.0) Red Blood Count 4.96 x10^6/uL (4.30-5.70) Hemoglobin 15.5 g/dL (13.0-17.5) Hematocrit 47.5 % (39.0-53.0) Mean Corpuscular Volume 96 fL (79-100) Mean Corpuscular Hemoglobin 31 pg (25-35) Mean Corpuscular Hemoglobin Concent 33 g/dL (31-37) Red Cell Distribution Width 13.6 % (11.5-14.5) Platelet Count 255 x10^3/uL (140-400) Neutrophils (%) (Auto) 49 % (31-73) Lymphocytes (%) (Auto) 27 % (24-48) Monocytes (%) (Auto) 8 % (0-9) Eosinophils (%) (Auto) 15 % (0-3) Basophils (%) (Auto) 1 % (0-3) Neutrophils # (Auto) 5.7 x10^3uL (1.8-7.7) Lymphocytes # (Auto) 3.2 x10^3/uL (1.0-4.8) Monocytes # (Auto) 1.0 x10^3/uL (0.0-1.1) Eosinophils # (Auto) 1.8 x10^3/uL (0.0-0.7) Basophils # (Auto) 0.1 x10^3/uL (0.0-0.2) Sodium Level 138 mmol/L (136-145) Potassium Level 3.7 mmol/L (3.5-5.1) Chloride Level 101 mmol/L (98-107) Carbon Dioxide Level 29 mmol/L (21-32) Anion Gap 8 (6-14) Blood Urea Nitrogen 19 mg/dL (8-26) Creatinine 0.8 mg/dL (0.7-1.3) Estimated GFR (Cockcroft-Gault) 98.3 Glucose Level 167 mg/dL (70-99) Calcium Level 8.4 mg/dL (8.5-10.1) Glucose (Fingerstick) 137 mg/dL (70-99) Laboratory Tests Test 09/19/17 11:31 09/19/17 16:27 09/19/17 20:41 09/20/17 03:15 Glucose (Fingerstick) 219 mg/dL (70-99) 267 mg/dL (70-99) 272 mg/dL (70-99) White Blood Count 11.7 x10^3/uL (4.0-11.0) Red Blood Count 4.96 x10^6/uL (4.30-5.70) Hemoglobin 15.5 g/dL (13.0-17.5) Hematocrit 47.5 % (39.0-53.0) Mean Corpuscular Volume 96 fL (79-100) Mean Corpuscular Hemoglobin 31 pg (25-35) Mean Corpuscular Hemoglobin Concent 33 g/dL (31-37) Red Cell Distribution Width 13.6 % (11.5-14.5) Platelet Count 255 x10^3/uL (140-400) Neutrophils (%) (Auto) 49 % (31-73) Lymphocytes (%) (Auto) 27 % (24-48) Monocytes (%) (Auto) 8 % (0-9) Eosinophils (%) (Auto) 15 % (0-3) Basophils (%) (Auto) 1 % (0-3) Neutrophils # (Auto) 5.7 x10^3uL (1.8-7.7) Lymphocytes # (Auto) 3.2 x10^3/uL (1.0-4.8) Monocytes # (Auto) 1.0 x10^3/uL (0.0-1.1) Eosinophils # (Auto) 1.8 x10^3/uL (0.0-0.7) Basophils # (Auto) 0.1 x10^3/uL (0.0-0.2) Sodium Level 138 mmol/L (136-145) Potassium Level 3.7 mmol/L (3.5-5.1) Chloride Level 101 mmol/L (98-107) Carbon Dioxide Level 29 mmol/L (21-32) Anion Gap 8 (6-14) Blood Urea Nitrogen 19 mg/dL (8-26) Creatinine 0.8 mg/dL (0.7-1.3) Estimated GFR (Cockcroft-Gault) 98.3 Glucose Level 167 mg/dL (70-99) Calcium Level 8.4 mg/dL (8.5-10.1) Test 09/20/17 07:10 Glucose (Fingerstick) 137 mg/dL (70-99) Medications Current Medications Methylprednisolone Sodium Succinate (SOLU-Medrol 125MG VIAL) 125 mg 1X ONCE IV Last administered on 09/15/17 04:15; Start 09/15/17 at 04:00; Stop at 04:01; Status DC Albuterol/ Ipratropium (Duoneb) 3 ml 1X ONCE NEB Last administered on 03:30; Start 09/15/17 at 04:00; Stop 09/15/17 at 04:01; Status DC Albuterol/ Ipratropium (Duoneb) 3 ml 1X ONCE NEB ; Start 09/15/17 at 04:00; Stop 09/15/17 at 04:01; Status DC Albuterol/ Ipratropium (Duoneb) 3 ml 1X ONCE NEB ; Start 09/15/17 at 04:00; Stop 09/15/17 at 04:01; Status DC Ondansetron HCl (Zofran) 4 mg PRN Q8HRS PRN IV NAUSEA/VOMITING; Start at 05:15; Stop 09/16/17 at 05:14; Status DC Albuterol/ Ipratropium (Duoneb) 3 ml RTQID NEB Last administered on 09/16/17 10:55; Start 09/15/17 at 08:00; Stop 09/16/17 at 07:59; Status DC Dextrose (Dextrose 50%-Water Syringe) 12.5 gm PRN Q15MIN PRN IV SEE COMMENTS; Start 09/15/17 at 07:30 Budesonide (Pulmicort) 0.5 mg RTBID NEB Last administered on 09/20/17 08:05; Start 09/15/17 at 10:30 Methylprednisolone Sodium Succinate (SOLU-Medrol 40MG VIAL) 40 mg Q8HRS IV Last administered on 09/17/17 05:56; Start 09/15/17 at 10:15; Stop 09/17/17 at 12:30; Status DC Aspirin (Ecotrin) 81 mg DAILYWBKFT PO Last administered on 09/20/17 08:30; Start 09/15/17 at 17:00 Atorvastatin Calcium (Lipitor) 40 mg QHS PO Last administered on 09/19/17 21: 17; Start 09/15/17 at 21:00 Lisinopril (Prinivil) 20 mg DAILY PO Last administered on 09/20/17 08:30; Start 09/15/17 at 17:00 Metformin HCl (Glucophage) 500 mg BIDWMEALS PO Last administered on 09/20/17 08:30; Start 09/15/17 at 17:00 Prasugrel (Effient) 10 mg DAILYWBKFT PO Last administered on 09/20/17 08:31; Start 09/15/17 at 17:00 Albuterol/ Ipratropium (Duoneb) 3 ml STK-MED ONCE .ROUTE ; Start 09/16/17 at 14 :50; Stop 09/16/17 at 14:51; Status DC Albuterol/ Ipratropium (Duoneb) 3 ml RTQID NEB Last administered on 09/20/17 08:05; Start 09/16/17 at 20:00 Methylprednisolone Sodium Succinate (SOLU-Medrol 40MG VIAL) 40 mg BID IV ; Start 09/17/17 at 21:00; Stop 09/17/17 at 21:00; Status DC Prednisone (Prednisone) 40 mg DAILY PO Last administered on 09/20/17 08:30; Start 09/17/17 at 14:30 Multi-Ingredient Mouthwash/Gargle (Gi Cocktail Single Dose) 15 ml 1X ONCE SWSW Last administered on 09/17/17 14:33; Start 09/17/17 at 14:45; Stop at 14:46; Status DC Guaifenesin (MUCINEX ER with DM) 1 tab BID PO Last administered on 09/20/17 08:30; Start 09/17/17 at 21:00 Active Scripts Active Flovent 110MCG Hfa (Fluticasone Propionate) 12 Gm Aer.w.adap 2 Puff IH BID Benzonatate 100 Mg Capsule 100 Mg PO [id number] Prednisone 20 Mg Tablet 40 Mg PO DAILY 2 Days Glucophage (Metformin Hcl) 500 Mg Tablet 500 Mg PO BIDWMEALS 30 Days Doxycycline Hyclate 100 Mg Tablet 100 Mg PO BID 3 Days Proair Hfa Inhaler (Albuterol Sulfate) 8.5 Gm Hfa.aer.ad 2 Puff INH PRN Q6HRS PRN Albuterol Sulfate Neb Soln (Albuterol Sulfate) 2.5 Mg/3 Ml Vial.neb 1 Vial NEB PRN Q4HRS Aspirin Ec (Aspirin) 81 Mg Tablet.dr 81 Mg PO DAILYWBKFT 30 Days Effient (Prasugrel Hcl) 10 Mg Tablet 10 Mg PO DAILYWBKFT 30 Days Hydrochlorothiazide Capsule (Hydrochlorothiazide) 12.5 Mg Capsule 12.5 Mg PO DAILY 30 Days Lisinopril 20 Mg Tablet 20 Mg PO DAILY 30 Days Atorvastatin Calcium 40 Mg Tablet 40 Mg PO QHS 30 Days Proair Hfa Inhaler (Albuterol Sulfate) 8.5 Gm Hfa.aer.ad 1 Puff INH PRN Q6HRS PRN Vitals/I & O Vital Sign - Last 24 Hours 09/19/17 09/19/17 09/19/17 09/19/17 11:00 11:42 15:00 15:45 Temp 97.8 97.9 97.8 97.9 Pulse 88 101 Resp 20 20 B/P (MAP) 165/103 (123) 123/84 (97) Pulse Ox 97 95 O2 Delivery Room Air Room Air Room Air Room Air 09/19/17 09/19/17 09/19/17 09/19/17 19:00 20:00 20:28 23:00 Temp 98.1 97.4 98.1 97.4 Pulse 104 85 Resp 20 20 B/P (MAP) 146/111 (123) 119/65 (83) Pulse Ox 92 93 O2 Delivery Room Air Room Air Room Air Room Air 09/20/17 09/20/17 09/20/17 09/20/17 03:00 07:00 08:00 08:06 Temp 98.1 97.5 98.1 97.5 Pulse 74 78 Resp 20 20 B/P (MAP) 126/82 (97) 134/68 (90) Pulse Ox 96 99 98 O2 Delivery Room Air Room Air Room Air Room Air 09/20/17 08:30 Pulse 78 B/P (MAP) 134/68 Intake and Output 09/19/17 09/19/17 09/20/17 15:00 23:00 07:00 Intake Total 750 ml 900 ml Balance 750 ml 900 ml JANETH TRACY MD Sep 20, 2017 09:03
--- NOTE | 2017-09-20 09:06 | DISCH ---
DISCHARGE INSTRUCTIONS Condition on Discharge Condition on Discharge: Stable Activity After Discharge Activity Instructions for Disc: Resume previous activity Exercise Instruction after Dis: Walk 10 min, 3 x per day Weight Bearing Status after Di: No restrictions Diet after Discharge Diet after Discharge: Diabetic No Calorie Level Checks after Discharge Checks after discharge: Check blood sugar, ac/hs Contacting the DR. after DC Call your doctor for: Fever greater than 100 Treatment/Equipment after DC Adaptive Equipment Issued: None Discharge Respiratory Equipmen: Nebulizer JANETH TRACY MD Sep 20, 2017 09:06
[2017-09-20] MEDS ORDERED: GUAI-108 PO (09:15)
[2017-09-20] MEDS ORDERED: ASPI-612 PO (09:15)
[2017-09-20] MEDS ORDERED: PRED20TA PO (09:15)
[2017-09-20] MEDS ORDERED: ATOR40TA59 PO (09:15)
[2017-09-20] MEDS ORDERED: METF500T PO (09:15)
[2017-09-20] MEDS ORDERED: IPRA3AMP NEB (09:15)
[2017-09-20] MEDS ORDERED: PRAS10TA9 PO (09:15)
[2017-09-20] MEDS ORDERED: LISI-334 PO (09:15)
[2017-09-20 11:00] VITALS: BP 158/94
== END 2017-09-20 10:49 | disposition home or self-care (01) | DRG 189 ==
LOC: ER 03:27 → 6 SOUTH 05:09
PROVIDERS: ADMIT Internal Medicine; ATTEND Internal Medicine
DX: J96.01 Acute respiratory failure with hypoxia (principal); J44.1 Chronic obstructive pulmonary disease with (acute) exacerbation; J45.901 Unspecified asthma with (acute) exacerbation; E66.01 Morbid (severe) obesity due to excess calories; I11.9 Hypertensive heart disease without heart failure; E11.9 Type 2 diabetes mellitus without complications; D72.829 Elevated white blood cell count, unspecified; E78.00 Pure hypercholesterolemia, unspecified; I25.10 Atherosclerotic heart disease of native coronary artery without angina pectoris; E78.5 Hyperlipidemia, unspecified; Z95.5 Presence of coronary angioplasty implant and graft; Z79.84 Long term (current) use of oral hypoglycemic drugs; Z68.36 Body mass index [BMI] 36.0-36.9, adult
CPT/HCPCS: 36415; 71010; 80048; 80053; 82962; 83880; 84484; 85007; 85025; 93005; 94250; 94620; 94640; 94760; 96374; J2920; J2930; J7512; J7620; J7626; 99285-25

== ENCOUNTER 2017-12-14 12:45 | Emergency (ER) | payer MEDICARE ==
[2017-12-14] MEDS ORDERED: HYDROcodone/CHLORPHEN POLIS 5 ML SUS.ER.12H PO ×2 (13:30)
[2017-12-14 13:33] LABS: ADD MAN DIFF? NO
[2017-12-14] MEDS: HYDROcodone/APAP 10/325 1 TAB TABLET PO ×2 (13:34)
[2017-12-14 13:44] LABS: BASO % 0 % (0-3); EOS # 1.4 x10^3/uL (0.0-0.7); EOS % 15 % (0-3); HEMATOCRIT 47.8 % (39.0-53.0); HEMOGLOBIN 16.5 g/dL (13.0-17.5); LYMPH % 21 % (24-48); MEAN CORPUSCULAR HEMOGLOBIN 33 pg (25-35); MEAN CORPUSCULAR HGB CONC 35 g/dL (31-37); MEAN CORPUSCULAR VOLUME 94 fL (79-100); MONO % 10 % (0-9); NEUT # 5.2 x10^3uL (1.8-7.7); NEUT % 54 % (31-73); PLATELET COUNT 256 x10^3/uL (140-400); RED BLOOD COUNT 5.08 x10^6/uL (4.30-5.70); RED CELL DISTRIBUTION WIDTH 13.5 % (11.5-14.5); WHITE BLOOD COUNT 9.7 x10^3/uL (4.0-11.0)
[2017-12-14 13:46] LABS: ANION GAP 11 (6-14); BLOOD UREA NITROGEN 11 mg/dL (8-26); BUN/CREATININE RATIO 14 (6-20); CALCIUM 8.7 mg/dL (8.5-10.1); CARBON DIOXIDE 25 mmol/L (21-32); CHLORIDE 100 mmol/L (98-107); CREATININE 0.8 mg/dL (0.7-1.3); GFR 98.3; GLUCOSE 147 mg/dL (70-99); POTASSIUM 3.7 mmol/L (3.5-5.1); SODIUM 136 mmol/L (136-145)
[2017-12-14 13:49] LABS: URIC ACID 6.2 mg/dL (3.5-7.2)
[2017-12-14 13:53] LABS: ALBUMIN 3.4 g/dL (3.4-5.0); ALBUMIN/GLOBULIN RATIO 0.8 (1.0-1.7); ALK PHOS 78 U/L (46-116); ALT (SGPT) 44 U/L (16-63); AST (SGOT) 23 U/L (15-37); TOTAL BILIRUBIN 0.9 mg/dL (0.2-1.0); TOTAL PROTEIN 7.8 g/dL (6.4-8.2)
== END 2017-12-14 14:25 | disposition home or self-care (01) ==
LOC: ER 12:45
DX: M10.9 Gout, unspecified (principal); E78.00 Pure hypercholesterolemia, unspecified; I11.9 Hypertensive heart disease without heart failure; J44.9 Chronic obstructive pulmonary disease, unspecified; Z95.5 Presence of coronary angioplasty implant and graft
CPT/HCPCS: 36415; 73630; 80053; 84550; 85025; 99285-25